=== PATIENT | female | born 1965 | race Caucasian/White ===

== ENCOUNTER 2022-10-26 17:38 | Emergency (ER) | payer OTHER ==
--- OUTSIDE RECORDS SUMMARY | 2022-10-26 17:41 | XMS REPORT | Continuity of Care Document ---
:1965 Author Organization [facility] t Address [address] [place] [address] [address] [place] [address] Care Team Providers Name Role Phone REILLY HOUSE Attending Clinician Unavailable Problems This patient has no known problems. Allergies, Adverse Reactions, Alerts This patient has no known allergies or adverse reactions. Medications This patient has no known medications. Procedures This patient has no known procedures. Encounters Start End Encounter Admission Attending Care Care Encounter Source Date/Time Date/Time Type Type Clinicians Facility Department ID 2022-10-17 2022-10-17 [facility] [id number] [place] 13:21:00 16:31:00 REILLY [id number] [facility] 2022-10-17 2022-10-17 emergency [id number] 13:21:00 16:31:00 [id number] [phone] [id number] Results This patient has no known results.
[2022-10-26] MEDS ORDERED: ONDANSETRON 4 MG/2 ML VIAL ONE (19:47)
[2022-10-26] MEDS ORDERED: NA CHLORIDE 0.9% 1,000 ML ONE (19:47)
[2022-10-26] MEDS ORDERED: DICYCLOMINE HCL 20 MG/2 ML AMP IM ONE (19:47)
[2022-10-26] MEDS ORDERED: KETOROLAC 30 MG/ML INJ ONE (19:47)
[2022-10-26] MEDS ORDERED: FAMOTIDINE 20 MG/2 ML VIAL IV ONE (19:48)
[2022-10-26 20:11] LABS: Absolute Lymphocytes (CBC) 0.7 K/uL (0.7-4.9); Hematocrit 46.6 % (36.0-45.0); Lymphocytes % 7.7 % (15.3-44.8); MCV 97.6 fL (80-100); MPV 8.2 fL (7.6-11.3); RBC Red Blood Cell Count 4.77 M/uL (3.86-4.86)
--- NOTE | 2022-10-26 20:57 | EDPHYS ---
Physician Documentation [facility] Name: Sandy Bianchi Age: 57 yrs Sex: Female : 1965 Arrival Date: 10/26/2022 Time: 17:38 Bed 11 Private MD: ED Physician Nma Barros HPI: 10/26 18:11 This 57 yrs old Female presents to ER via Unassigned with complaints of Nausea/Vomiting.ms3 18:11 57-year-old female with past medical history of diverticulitis, hypothyroidism, breast ms3 cancer presents for nausea, vomiting, abdominal pain that began 1 week prior to arrival. Patient states she has had intermittent episodes of nausea and vomiting for the past 5 years. Patient states she has had multiple work-ups that were negative. Patient states typically her symptoms resolved with IV fluid, morphine, and antiemetics. Patient denies pain at this time.. [employer]: 18:25 LMP N/A - Hysterectomy ap3 Historical: - Allergies: 18:23 PENICILLINS; ap3 - PMHx: 18:23 Anemia; Hx of breast cancer; Hypertensive disorder; Hypothyroidism; ap3 - PSHx: 18:23 Mastectomy, tanika; Thyroidectomy, partial; ap3 - Immunization history:: Client reports receiving the 2nd dose of the Covid vaccine. - Social history:: Smoking status: Reported history of juuling and/or vaping. Patient uses alcohol, only on a social basis. ROS: 18:11 Constitutional: Negative for fever, and chills. Cardiovascular: Negative for chest ms3 pain, and palpitations. Respiratory: Negative for shortness of breath, cough, wheezing, and pleuritic chest pain. 18:11 MS/Extremity: Negative for injury and deformity. 18:11 Abdomen/GI: Positive for abdominal pain, nausea and vomiting. 18:11 All other systems are negative. Exam: 18:11 Constitutional: This is a well developed, well nourished patient who is awake, alert, ms3 and in no acute distress. Head/Face: Normocephalic, atraumatic. Chest/axilla: Normal chest wall appearance and motion. Nontender with no deformity. Cardiovascular: Regular rate and rhythm with a normal S1 and S2. No gallops, murmurs, or rubs. Normal PMI, no JVD. No pulse deficits. Respiratory: Lungs have equal breath sounds bilaterally, clear to auscultation and percussion. No rales, rhonchi or wheezes noted. No increased work of breathing, no retractions or nasal flaring. Abdomen/GI: Soft, non-tender, with normal bowel sounds. No distension or tympany. No guarding or rebound. No evidence of tenderness throughout. Back: No spinal tenderness. No costovertebral tenderness. Full range of motion. Skin: Warm, dry with normal turgor. Normal color with no rashes, no lesions, and no evidence of cellulitis. MS/ Extremity: Pulses equal, no cyanosis. Neurovascular intact. Full, normal range of motion. Vital Signs: 18:22 BP 141 / 105; Pulse 80; Resp 19; Temp 98.7; Pulse Ox 100% ; Weight 65.77 kg; Height 5 ap3 ft. 2 in. ; Pain 5/10; 21:01 BP 131 / 84; Pulse 84; Resp 17; Pulse Ox 99% on R/A; kd3 18:22 Body Mass Index 26.52 (65.77 kg, 157.48 cm) ap3 18:22 Pain Scale: Adult ap3 MDM: 18:11 Differential diagnosis: Nonspecific abd pain, gastritis, diverticulitis, viral ms3 gastroenteritis, gastroenteritis. 18:37 Patient medically screened. ms3 19:04 Transition of care: After a detail discussion of the patient's case, care is ms3 transferred to Nam Barros MD. 20:58 Data reviewed: vital signs, lab test result(s). kdr 10/26 18:11 Order name: CBC with Diff; Complete Time: 20:34 ms3 10/26 18:11 Order name: CMP ms3 10/26 18:11 Order name: Lipase ms3 10/26 18:11 Order name: IV Saline Lock; Complete Time: 19:49 ms3 10/26 18:11 Order name: Labs collected and sent; Complete Time: 19:49 ms3 Administered Medications: 19:30 Drug: NS 0.9% IV 1000 ml Route: IV; Rate: 1 bolus; Site: right antecubital; mb9 19:31 Drug: Ondansetron IVP 4 mg Route: IVP; Site: right antecubital; mb9 19:34 Drug: TORadol - Ketorolac IVP 15 mg Route: IVP; Site: right antecubital; mb9 19:38 Drug: Famotidine IVP 20 mg Route: IVP; Site: right antecubital; mb9 19:56 Drug: Dicyclomine IM 20 mg Route: IM; Site: right gluteus; mb9 Disposition Summary: 10/26/22 20:56 Discharge Ordered Location: Home kdr Problem: new kdr Symptoms: have improved kdr Condition: Stable kdr Diagnosis - Nausea with vomiting, unspecified kdr Followup: kdr - With: Private Physician - When: 2 - 3 days - Reason: If symptoms return, Further diagnostic work-up, Recheck today's complaints, Continuance of care, Re-evaluation by your physician Discharge Instructions: - Discharge Summary Sheet kdr - Nausea and Vomiting, Adult, [id number] kdr Forms: - Medication Reconciliation Form kdr - Thank You Letter kdr Prescriptions: - promethazine 25 mg Oral Tablet - take 1 tablet by ORAL route every 6 hours As needed; 20 tablet; Refills: 0, kdr Product Selection Permitted Signatures: Dispatcher [employer] EDNam Medel MD MD kdr Prokisch, Amanda RN RN ap3 Orion Pulido DO DO ms3 Tamiko Botello RN RN mb9
--- NOTE | 2022-10-26 20:57 | ER ---
Nurse's Notes [facility] Name: Sandy Bianchi Age: 57 yrs Sex: Female : 1965 Arrival Date: 10/26/2022 Time: 17:38 Bed 11 Private MD: Diagnosis: Nausea with vomiting, unspecified Presentation: 10/26 18:22 Chief complaint: Patient states: she has been having nausea and vomiting since 0230 ap3 this morning. patient states this has happened a few times recently that required ER visits. Coronavirus screen: At this time, the client does not indicate any symptoms associated with coronavirus-19. Ebola Screen: No symptoms or risks identified at this time. Initial Sepsis Screen: Does the patient meet any 2 criteria? No. Patient's initial sepsis screen is negative. Does the patient have a suspected source of infection? No. Patient's initial sepsis screen is negative. Risk Assessment: Do you want to hurt yourself or someone else? Patient reports no desire to harm self or others. Onset of symptoms was October 26, 2022 at 02:30. 18:22 Method Of Arrival: Ambulatory ap3 18:22 Acuity: ALETHA 3 ap3 Triage Assessment: 18:24 General: Appears in no apparent distress. Behavior is calm, cooperative, appropriate ap3 for age. Pain: Complains of pain in abdomen Pain began 0230 this morning. Neuro: Level of Consciousness is awake, alert, obeys commands, Oriented to person, place, time, situation. Cardiovascular: Patient's skin is warm and dry. Respiratory: Airway is patent Respiratory effort is even, unlabored, Respiratory pattern is regular, symmetrical. GI: Reports lower abdominal pain, upper abdominal pain, nausea, vomiting. 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 - Social history:: Smoking status: Reported history of juuling and/or vaping. Patient uses alcohol, only on a social basis. Screenin:25 [facility] ED Fall Risk Assessment (Adult) History of falling in the last 3 months, ap3 including since admission No falls in past 3 months (0 pts). Abuse screen: Denies threats or abuse. Tuberculosis screening: No symptoms or risk factors identified. 20:59 Nutritional screening: No deficits noted. kd3 Assessment: 20:59 Reassessment: Patient states feeling better. General: Appears in no apparent distress. kd3 Neuro: Level of Consciousness is awake, alert, obeys commands, Oriented to person, place, time, situation. GI: Abdomen is flat, non-distended. Vital Signs: 18:22 BP 141 / 105; Pulse 80; Resp 19; Temp 98.7; Pulse Ox 100% ; Weight 65.77 kg; Height 5 ap3 ft. 2 in. ; Pain 5/10; 21:01 BP 131 / 84; Pulse 84; Resp 17; Pulse Ox 99% on R/A; kd3 18:22 Body Mass Index 26.52 (65.77 kg, 157.48 cm) ap3 18:22 Pain Scale: Adult ap3 ED Course: 17:43 Patient arrived in ED. mr 17:44 Orion Pulido DO is Attending Physician. ms3 18:23 Triage completed. ap3 18:25 Arm band placed on left wrist. ap3 19:05 Attending Physician role handed off by Orion Pulido DO ms3 19:05 Nam Barros MD is Attending Physician. ms3 19:47 Margarette Ohara, JOSE is Primary Nurse. kd3 19:48 Inserted saline lock: 20 gauge in right antecubital area, using aseptic technique. kd3 Blood collected. 19:57 CBC with Diff Sent. mb9 19:57 CMP Sent. mb9 19:57 Lipase Sent. mb9 20:59 Patient has correct armband on for positive identification. kd3 20:59 No provider procedures requiring assistance completed. IV discontinued, intact, kd3 bleeding controlled, No redness/swelling at site. Pressure dressing applied. Administered Medications: 19:30 Drug: NS 0.9% IV 1000 ml Route: IV; Rate: 1 bolus; Site: right antecubital; mb9 19:31 Drug: Ondansetron IVP 4 mg Route: IVP; Site: right antecubital; mb9 19:34 Drug: TORadol - Ketorolac IVP 15 mg Route: IVP; Site: right antecubital; mb9 19:38 Drug: Famotidine IVP 20 mg Route: IVP; Site: right antecubital; mb9 19:56 Drug: Dicyclomine IM 20 mg Route: IM; Site: right gluteus; mb9 Medication: 20:59 VIS not applicable for this client. kd3 Outcome: 20:56 Discharge ordered by . kdr 20:59 Discharged to home ambulatory. kd3 20:59 Condition: stable 20:59 Discharge instructions given to patient, Instructed on discharge instructions, follow up and referral plans. medication usage, Demonstrated understanding of instructions, follow-up care, medications, Prescriptions given X 21:02 Patient left the ED. kd3 Signatures: Nam Barros MD MD kdr Rivera, Mary mr Prokisch, Amanda RN RN ap3 Orion Pulido DO DO ms3 Margarette Ohara RN RN kd3 Tamiko Botello RN RN mb9
[2022-10-26 20:59] LABS: Albumin 4.2 g/dL (3.4-5.0); Bilirubin Total 0.7 mg/dL (0.2-1.0); Potassium 3.5 mEq/L (3.5-5.1)
[2022-10-26 22:16] VITALS: TEMP 98.7
[2022-10-26 22:17] VITALS: BP 131/84; O2SAT 99
== END 2022-10-26 21:02 | disposition home or self-care (01) ==
LOC: ER 17:38
DX: R11.2 Nausea with vomiting, unspecified (principal); I10 Essential (primary) hypertension; Z88.0 Allergy status to penicillin; Z90.13 Acquired absence of bilateral breasts and nipples
CPT/HCPCS: 85025; 36415; 83690; 80053; 96375; 96372; 96374; 99284; J0500; J2405; J7030

== ENCOUNTER 2023-10-09 23:23 | Observation (INO) | payer OTHER ==
--- OUTSIDE RECORDS SUMMARY | 2023-10-09 23:26 | XMS REPORT | Continuity of Care Document ---
Author Name Unknown Address [address] [facility] [address] th[address] Address [address] [facility] [address] [place] [address] Care Team Providers Care Coffee Roaster Name Role Phone Selena May Attending Clinician Unavail able Marcelina Attending Clinician Unavailable DNIESH DEWITT Attending Clinician Unavail able REILLY HOUSE Attending Clinician Unavailab trevin Hewitt Admitting Clinician Unavailable Payers Payer Name Policy Type Policy Number Effective Date Expirati on Date Source [facility] [place] [id number] Problems Condition Name Condition Details Condition Category Status Onset Date Resolution Date Last Treatment Date Treating Clinician Comments Source Hypothyroi dism Hypothyroi dism Problem Active 09-01 00:00: 00 [facility] Kimberlee thyroiditi s Kimberlee Thyroiditi s Problem Active 09-01 00:00: 00 [facility] von Willebrand disorder Von Willebrand Disorder Problem Active 08-04 00:00: 00 [facility] Hypertensi ve disorder Hypertensi ve Disorder Problem Active 08-04 00:00: 00 [facility] Coronary arterioscl erosis Coronary Arterioscl erosis Problem Active 2 00:00: 00 [facility] Deep venous thrombosis Deep Venous Thrombosis Problem Active 2 00:00: 00 [facility] Malignant tumor of breast Malignant Tumor of Breast Problem Active 08-04 00:00: 00 [facility] Diabetes mellitus Diabetes Mellitus Problem Active 2 00:00: 00 [facility] Anemia Anemia Problem Active 08-04 00:00: 00 [facility] Allergies, Adverse Reactions, Alerts Allergy Name Allergy Type Status Severity Reaction(s) Onset Date Inactive Date Treating Clinician Comments Source PENICILL INS Allergy to substanc e Active [facility] Social History Smoking Status Start Date Stop Date Source Former Smoker [facility] Medications Ordered Medication Name Filled Medication Name Start Date Stop Date Current Medication? Ordering Clinician Indication Dosage Frequency Signature (SIG) Comments Components Source amlodipine 10 mg tablet TAKE 1 TABLET BY MOUTH EVERY DAY NEEDED amlodipine 10 mg tablet TAKE 1 TABLET BY MOUTH EVERY DAY NEEDED No amlodipine 10 mg tablet TAKE 1 TABLET BY MOUTH EVERY DAY NEEDED [facility] diazepam 10 mg tablet TAKE 1 TABLET BY MOUTH ONCE A DAY NEEDED diazepam 10 mg tablet TAKE 1 TABLET BY MOUTH ONCE A DAY NEEDED No diazepam 10 mg tablet TAKE 1 TABLET BY MOUTH ONCE A DAY NEEDED [facility] metoprolol tartrate 50 mg tablet TAKE 1 TABLET BY MOUTH TWICE DAILY WITH FOOD metoprolol tartrate 50 mg tablet TAKE 1 TABLET BY MOUTH TWICE DAILY WITH FOOD No metoprolol tartrate 50 mg tablet TAKE 1 TABLET BY MOUTH TWICE DAILY WITH FOOD [facility] olmesartan 5 mg tablet TAKE 1 TABLET BY MOUTH EVERY DAY NEEDED olmesartan 5 mg tablet TAKE 1 TABLET BY MOUTH EVERY DAY NEEDED No olmesartan 5 mg tablet TAKE 1 TABLET BY MOUTH EVERY DAY NEEDED [facility] promethazin e 25 mg tablet TAKE 1 TABLET BY MOUTH EVERY 12 HOURS NEEDED promethazin e 25 mg tablet TAKE 1 TABLET BY MOUTH EVERY 12 HOURS NEEDED No promethazi ne 25 mg tablet TAKE 1 TABLET BY MOUTH EVERY 12 HOURS NEEDED [facility] sertraline 50 mg tablet TAKE 1 TABLET BY MOUTH EVERY DAY sertraline 50 mg tablet TAKE 1 TABLET BY MOUTH EVERY DAY No sertraline 50 mg tablet TAKE 1 TABLET BY MOUTH EVERY [facility] tizanidine 4 mg tablet TAKE 1 TABLET BY MOUTH THREE TIMES DAILY NEEDED tizanidine 4 mg tablet TAKE 1 TABLET BY MOUTH THREE TIMES DAILY NEEDED No tizanidine 4 mg tablet TAKE 1 TABLET BY MOUTH THREE TIMES DAILY NEEDED [facility] Vitamin B12 Vitamin B12 No Vi tamin B12 [facility] amlodipine 10 mg tablet TAKE 1 TABLET BY MOUTH EVERY DAY NEEDED amlodipine 10 mg tablet TAKE 1 TABLET BY MOUTH EVERY DAY NEEDED No amlodipine 10 mg tablet TAKE 1 TABLET BY MOUTH EVERY DAY [facility]ED [facility] cyanocobala min (vit B-12) 1,000 mcg/mL injection solution INJECT 1 ML IN THE MUSCLE ONCE A MONTH cyanocobala min (vit B-12) 1,000 mcg/mL injection solution INJECT 1 ML IN THE MUSCLE ONCE A MONTH No cyanocobal serrano (vit B-12) 1,000 mcg/mL injection solution INJECT 1 ML IN THE MUSCLE ONCE A MONTH [facility] diazepam 10 mg tablet TAKE 1 TABLET BY MOUTH ONCE A DAY NEEDED diazepam 10 mg tablet TAKE 1 TABLET BY MOUTH ONCE A DAY NEEDED No diazepam 10 mg tablet TAKE 1 TABLET BY MOUTH ONCE A DAY [facility]ED [facility] metoprolol tartrate 50 mg tablet TAKE 1 TABLET BY MOUTH TWICE DAILY WITH FOOD metoprolol tartrate 50 mg tablet TAKE 1 TABLET BY MOUTH TWICE DAILY WITH FOOD No metoprolol tartrate 50 mg tablet TAKE 1 TABLET BY MOUTH TWICE DAILY WITH FOOD [facility] olmesartan 5 mg tablet TAKE 1 TABLET BY MOUTH EVERY DAY NEEDED olmesartan 5 mg tablet TAKE 1 TABLET BY MOUTH EVERY DAY NEEDED No olmesartan 5 mg tablet TAKE 1 TABLET BY MOUTH EVERY DAY NEEDED [facility] promethazin e 25 mg tablet TAKE 1 TABLET BY MOUTH EVERY 12 HOURS NEEDED promethazin e 25 mg tablet TAKE 1 TABLET BY MOUTH EVERY 12 HOURS NEEDED No promethazi ne 25 mg tablet TAKE 1 TABLET BY MOUTH EVERY 12 HOURS NEEDED [facility] sertraline 50 mg tablet TAKE 1 TABLET BY MOUTH EVERY DAY sertraline 50 mg tablet TAKE 1 TABLET BY MOUTH EVERY DAY No sertraline 50 mg tablet TAKE 1 TABLET BY MOUTH EVERY DAY [facility] tizanidine 4 mg tablet TAKE 1 TABLET BY MOUTH THREE TIMES DAILY NEEDED tizanidine 4 mg tablet TAKE 1 TABLET BY MOUTH THREE TIMES DAILY NEEDED No tizanidine 4 mg tablet TAKE 1 TABLET BY MOUTH THREE TIMES DAILY NEEDED [facility] Vitamin B12 Vitamin B12 No Vi tamin B12 [facility] Vital Signs Vital Name Observation Time Observation Value Comments S ource Body Weight 2023-09-02 00:00:00 159.6 [lb_av] [facility] Height 2023-09-02 00:00:00 62 [in_i] [facility] orda [facility] BP Systolic 2023-09-02 00:00:00 166 mm[Hg] Herbert ady [facility] BP Diastolic 2023-09-02 00:00:00 99 mm[Hg] [facility] radhaa [facility] BMI (Body Mass Index) 2023-09-02 00:00:00 29.2 kg/m2 [facility] BMI (Body Mass Index) 2023-08-04 00:00:00 28.6 kg/m2 [facility] BP Systolic 2023-08-04 00:00:00 174 mm[Hg] Herbert ady [facility] Height 2023-08-04 00:00:00 62 [in_i] [facility] Body Weight 2023-08-04 00:00:00 156.2 [lb_av] M cesarrda [facility] BP Diastolic 2023-08-04 00:00:00 94 mm[Hg] [place] [facility] Procedures Procedure Date / Time Performed Performing Clinician Source Esophagogastroduodenoscopy 2023-08-22 00:00:00 [facility] Subtotal Thyroidectomy [place] [facility] Hysterectomy [facility] Bilateral Mastectomy [place] [facility] Encounters Start Date/Time End Date/Time Encounter Type Admission Type Attending Clinicians Care Facility Care Department Encounter ID Source 2023-08-25 13:22:01 [facility] [id number] [facility] 2023-08-01 13:02:00 [facility] [id number] [facility] 2023-10-02 00:00:00 2023-10-02 00:00:00 Outpatient Cirilogusprasad_Sherin apple [facility] [id number] [facility] 2023-09-02 00:00:00 2023-09-02 00:00:00 Outpatient Ferguson_Ro zechariah [facility] [id number] [facility] 2023-09-02 00:00:00 2023-09-02 00:00:00 Dinesh Dewitt MD: [address] [place] [id number] , Ph. [facility] [id number] [facility] 2023-08-22 11:08:00 2023-08-22 11:08:00 Outpatient DINESH LYONS [facility] [id number] [facility] 2023-08-21 00:00:00 2023-08-21 00:00:00 Outpatient Ferguson_Ro zechariah [facility] [id number] [facility] 2023-08-04 00:00:00 2023-08-04 00:00:00 Outpatient Ferguson_Ro bin [facility] [id number] [facility] 2023-08-04 00:00:00 2023-08-04 00:00:00 Dinesh Dewitt MD: [address] [place] [address] , [facility] [id number] [facility] 2023-08-03 00:00:00 2023-08-03 00:00:00 Outpatient Monserrat_Ro zechariah [facility] [id number] [facility] 2022-10-17 13:21:00 2022-10-17 16:31:00 Emergency ER REILLY HOUSE [facility] [id number] [facility] 2022-10-17 13:21:00 2022-10-17 16:31:00 emergency [id number]
[2023-10-09] MEDS ORDERED: ONDANSETRON 4 MG/2 ML VIAL ONE (23:42)
[2023-10-10 00:38] LABS: Absolute Eosinophils 0.1 K/uL (0-0.5); Absolute Lymphocytes (CBC) 0.4 K/uL (0.7-4.9); Absolute Monocytes 0.6 K/uL (0.1-1.3); Absolute Neutrophil 9.3 K/uL (1.8-8.0); Basophils % 0.2 % (0-1.3); Eosinophils % 0.8 % (0-4.4); Hematocrit 45.9 % (36.0-45.0); Hemoglobin 15.6 g/dL (12.0-15.0); Lymphocytes % 4.2 % (15.3-44.8); MCHC 34.1 g/dL (32.0-36.0); MCV 102.5 fL (80-100); MPV 8.1 fL (7.6-11.3); Monocytes % 5.6 % (3.3-12.3); Neutrophils % 89.2 % (41.7-73.7); Platelets 319 thou/uL (152-406); RBC Red Blood Cell Count 4.47 M/uL (3.86-4.86); Red Cell Distribution Width 14.7 % (12.1-15.2)
[2023-10-10 00:50] LABS: ALT/SGPT 78 U/L (13-56); AST/SGOT 41 U/L (15-37); Albumin 4.5 g/dL (3.4-5.0); Albumin/Globulin Ratio 1.2 (1.1-1.8); Alkaline Phosphatase 70 U/L (45-117); Anion Gap 9.1 mEq/L (5.0-15.0); BUN Blood Urea Nitrogen 19 mg/dL (7-18); Bicarbonate 24 mEq/L (21-32); Bilirubin Direct 0.2 mg/dL (0-0.2); Bilirubin Indirect, Calculated 0.5 mg/dL (0.2-0.8); Bilirubin Total 0.7 mg/dL (0.2-1.0); Globulin 3.7 g/dL (2.3-3.5); Glomerular Filtration Rate 79 ml/min (=/>90); Glucose Level 139 mg/dL (74-106); Lipase 31 U/L (13-75); Magnesium 2.1 mg/dL (1.6-2.4); NT PRO-BNP 271 pg/mL (<125); Potassium 4.1 mEq/L (3.5-5.1); Protein, Total 8.2 g/dL (6.4-8.2); Sodium Level 140 mEq/L (136-145)
[2023-10-10 01:02] LABS: Troponin High Sensitivity < 3.0 pg/mL (<58.9)
[2023-10-10 02:25] LABS: Band Neutrophils 17 % (0-1); Differential Total Cells Count 100; Lymphocytes 6 % (15-42); Monocytes 5 % (0-10); Segmented Neutrophils 72 % (40-80)
[2023-10-10 02:26] LABS: Blood Morphology Comment NOT SEEN (NOT SEEN); Platelet Estimate ADEQ
--- NOTE | 2023-10-10 02:31 | ER ---
Nurse's Notes [facility] Name: Sandy Bianchi Age: 58 yrs Sex: Female : 1965 Arrival Date: 10/09/2023 Time: 23:23 Bed 15 Private MD: Diagnosis: Chest pain, unspecified Presentation: 10/08 23:23 Chief complaint: Patient states: reports chest pain for one week with nausea and bm8 vomiting today. Coronavirus screen: At this time, the client does not indicate any symptoms associated with coronavirus-19. Ebola Screen: Patient negative for fever greater than or equal to 101.5 degrees Fahrenheit, and additional compatible Ebola Virus Disease symptoms Patient denies exposure to infectious person. No symptoms or risks identified at this time. Initial Sepsis Screen: Does the patient meet any 2 criteria? No. Patient's initial sepsis screen is negative. Does the patient have a suspected source of infection? No. Patient's initial sepsis screen is negative. Risk Assessment: Do you want to hurt yourself or someone else? Patient reports no desire to harm self or others. Onset of symptoms was October 03, 2023. Care prior to arrival: Medication(s) given: zofran 4 mg. 23:23 Method Of Arrival: EMS: unk bm8 23:23 Acuity: ALETHA 2 bm8 Triage Assessment: 23:34 General: Appears in no apparent distress. uncomfortable, Behavior is calm, cooperative, bm8 appropriate for age. Pain: Complains of pain in chest Pain does not radiate. Pain currently is 7 out of 10 on a pain scale. Quality of pain is described as sharp. EENT: No deficits noted. No signs and/or symptoms were reported regarding the EENT system. Neuro: No deficits noted. Level of Consciousness is awake, alert, obeys commands, Oriented to person, place, time, situation, Appropriate for age. Cardiovascular: Reports chest pain, nausea, vomiting, since last week Heart tones S1 S2 present Capillary refill < 3 seconds Patient's skin is warm and dry. Rhythm is regular. Respiratory: Airway is patent Respiratory effort is even, unlabored, Respiratory pattern is regular, symmetrical, Breath sounds are clear bilaterally. GI: No deficits noted. No signs and/or symptoms were reported involving the gastrointestinal system. : No deficits noted. No signs and/or symptoms were reported regarding the genitourinary system. Derm: No deficits noted. No signs and/or symptoms reported regarding the dermatologic system. Musculoskeletal: No deficits noted. No signs and/or symptoms reported regarding the musculoskeletal system. Historical: - Allergies: 23:34 PENICILLINS; bm8 - Home Meds: 23:34 Unable to obtain [Active]; bm8 - PMHx: 23:34 Anemia; Hx of breast cancer; Hypertensive disorder; Hypothyroidism; hashimotos disease bm8 (Hypothyroidism); - Immunization history:: Adult Immunizations up to date. - Infectious Disease History:: Denies. - Social history:: Smoking status: unknown Patient uses alcohol. - Family history:: not pertinent. Screenin:40 [facility] ED Fall Risk Assessment (Adult) History of falling in the last 3 months, km8 including since admission No falls in past 3 months (0 pts) Confusion or Disorientation No (0 pts) Intoxicated or Sedated No (0 pts) Impaired Gait No (0 pts) Mobility Assist Device Used No (0 pt) Altered Elimination No (0 pt) Score/Fall Risk Level 0 - 2 = Low Risk Oriented to surroundings, Maintained a safe environment, Educated pt \T\ family on fall prevention, incl call for assistance when getting out of bed, Assessed \T\ reinforced patient's understanding of fall precautions. Abuse screen: Denies threats or abuse. Denies injuries from another. Nutritional screening: No deficits noted. Tuberculosis screening: No symptoms or risk factors identified. Assessment: 23:40 General: Appears uncomfortable, Behavior is cooperative, appropriate for age. Pain: km8 Complains of pain in left breast Pain does not radiate. Pain currently is 7 out of 10 on a pain scale. Quality of pain is described as tightness Pain began 1 week Is continuous. Neuro: Level of Consciousness is awake, alert, obeys commands, Oriented to person, place, time, situation. Cardiovascular: Reports chest pain, nausea, vomiting, Patient's skin is warm and dry. Rhythm is sinus rhythm Chest pain is described as diffuse, quality is tightness is located in anterior chest wall began 1 week ago episodes are continuous. Respiratory: Airway is patent Respiratory effort is even, unlabored, Respiratory pattern is regular, symmetrical. GI: Abdomen is non-distended, Parent/caregiver reports the patient having nausea, vomiting. : No signs and/or symptoms were reported regarding the genitourinary system. EENT: No signs and/or symptoms were reported regarding the EENT system. Derm: No signs and/or symptoms reported regarding the dermatologic system. Skin is intact, Skin is dry, Skin is pink, warm \T\ dry. normal, Skin temperature is warm. Musculoskeletal: No signs and/or symptoms reported regarding the musculoskeletal system. Range of motion: intact in all extremities. 10/09 00:41 Reassessment: Patient appears in no apparent distress at this time. Patient and/or [facility] family updated on plan of care and expected duration. Pain level reassessed. Patient is alert, oriented x 3, equal unlabored respirations, skin warm/dry/pink. Patient states symptoms have improved. 01:06 Reassessment: Patient appears in no apparent distress at this time. No changes from [facility] previously documented assessment. Patient and/or family updated on plan of care and expected duration. Pain level reassessed. Patient is alert, oriented x 3, equal unlabored respirations, skin warm/dry/pink. 02:03 Reassessment: Patient appears in no apparent distress at this time. No changes from km previously documented assessment. Patient and/or family updated on plan of care and expected duration. Pain level reassessed. Patient is alert, oriented x 3, equal unlabored respirations, skin warm/dry/pink. 03:00 Reassessment: Patient appears in no apparent distress at this time. No changes from [facility] previously documented assessment. pt sleeping. Vital Signs: 10/08 23:23 BP 154 / 95; Pulse 80; Resp 17; Temp 97.8; Pulse Ox 100% ; Weight 70.31 kg; Height 5 bm8 ft. 4 in. ; Pain 7/10; 23:45 BP 136 / 74; Pulse 77; Resp 16; Pulse Ox 96% on R/A; km8 10/09 00:00 BP 134 / 81; Pulse 76; Resp 16; Pulse Ox 96% on R/A; 8 00:15 BP 115 / 84; Pulse 78; Resp 16; Pulse Ox 96% on R/A; 8 00:30 BP 134 / 86; Pulse 77; Resp 18; Pulse Ox 97% on R/A; 8 01:00 BP 126 / 89; Pulse 79; Resp 16; Pulse Ox 95% on R/A; km8 01:30 BP 126 / 74; Pulse 77; Resp 20; Pulse Ox 96% on R/A; km8 02:00 BP 114 / 67; Pulse 71; Resp 18; Pulse Ox 95% on R/A; km8 03:00 BP 116 / 77; Pulse 78; Resp 20; Pulse Ox 93% on R/A; km8 10/08 23:23 Body Mass Index 26.61 (70.31 kg, 162.56 cm) 8 10/08 23:23 Pain Scale: Adult [facility] [place] Coma Score: 10/08 23:40 Eye Response: spontaneous(4). Motor Response: obeys commands(6). Verbal Response: km8 oriented(5). Total: 15. ED Course: 23:24 Patient arrived in ED. km8 23:24 Carin Hager, JOSE is Primary Nurse. km8 23:24 Edmund Daigle MD is Attending Physician. rt 23:30 EKG done, by ED staff, reviewed by Edmund Dagile MD. km8 23:34 Triage completed. bm8 23:34 Arm band placed on right wrist. Patient placed in an exam room, on a stretcher. EKG [facility] completed in triage. Results shown to MD. 23:40 Basic Metabolic Panel Sent. km8 23:40 CBC with Diff Sent. 8 23:40 LFT's Sent. 8 23:40 Magnesium Sent. 8 23:40 NT PRO-BNP Sent. 8 23:40 Troponin HS Sent. 8 23:40 Initial lab(s) drawn, by ma, sent to lab. Inserted saline lock: 20 gauge in right [facility] forearm, using aseptic technique. Blood collected. 23:40 O2 via room air. km8 23:40 Patient has correct armband on for positive identification. Bed in low position. Call [facility] light in reach. Side rails up X 1. Adult w/ patient. Client placed on continuous cardiac and pulse oximetry monitoring. NIBP monitoring applied. property assessment monitor on. Pulse ox on. NIBP on. Lights dimmed. Warm blanket given. 23:47 XRAY Chest (1 view) In Process Unspecified. EDMS 23:48 TSH Sent. km8 10/09 00:43 No provider procedures requiring assistance completed. km8 02:00 Provided Education on: admission process. km8 02:30 Jaron Becerra MD is Hospitalizing Provider. rt 03:20 Patient admitted, IV remains in place. km8 Administered Medications: 10/08 23:48 Drug: Ondansetron IVP 4 mg IVP once; over 2 minutes Route: IVP; Site: right forearm; km8 10/09 00:41 Follow up: Response: No adverse reaction; Nausea is decreased 8 Medication: 10/08 23:40 VIS not applicable for this client. km8 Outcome: 10/09 02:30 Decision to Hospitalize by Provider. rt 04:30 Admitted to ER Hold. Please see [facility] for further documentation. km8 04:30 Condition: stable 04:30 Instructed on the need for admit, Demonstrated understanding of instructions, 08:29 Patient left the ED. ld1 Signatures: Dispatcher [employer] EDMS Sophie Pulido, RN RN ld1 Edmund Daigle MD MD rt Carin Hager RN RN km8 Singh Carrera RN RN bm8 Corrections: (The following items were deleted from the chart) 00:19 10/08 23:48 LIPASE+C.LAB.BRZ drawn and sent. [facility] EDVA
--- NOTE | 2023-10-10 02:31 | EDPHYS ---
Physician Documentation [facility] Name: Sandy Bianchi Age: 58 yrs Sex: Female : 1965 Arrival Date: 10/09/2023 Time: 23:23 Bed 15 Private MD: ED Physician Edmund Daigle HPI: 10/08 23:52 This 58 yrs old Female presents to ER via EMS with complaints of Chest Pain, rt Nausea/Vomiting. 23:52 Patient reports having labile blood pressures for the past week. She reports having a rt substernal chest pain as well as nausea, vomiting, keeping her from eating or drinking. The patient states that she had an abnormal stress test and heart cath over 6 years ago, but the disease was not critical to the point of needing stenting. The patient denies other acute complaints at this time, symptoms are moderate in severity, no other aggravating or alleviating factors.. Historical: - Allergies: 23:34 PENICILLINS; bm8 - Home Meds: 23:34 Unable to obtain [Active]; bm8 - PMHx: 23:34 Anemia; Hx of breast cancer; Hypertensive disorder; Hypothyroidism; hashimotos disease bm8 (Hypothyroidism); - Immunization history:: Adult Immunizations up to date. - Infectious Disease History:: Denies. - Social history:: Smoking status: unknown Patient uses alcohol. - Family history:: not pertinent. ROS: 23:52 Constitutional: Negative for fever, chills, and weight loss, Respiratory: Negative for rt shortness of breath, cough, wheezing, and pleuritic chest pain, MS/Extremity: Negative for injury and deformity, Skin: Negative for injury, rash, and discoloration, Neuro: Negative for headache, weakness, numbness, tingling, and seizure, 23:52 Cardiovascular: Positive for chest pain, Negative for edema, 23:52 Respiratory: Positive for 23:52 Abdomen/GI: Positive for nausea and vomiting, Exam: 23:52 Constitutional: This is a well developed, well nourished patient who is awake, alert, rt and in no acute distress. Head/Face: Normocephalic, atraumatic. Chest/axilla: Normal chest wall appearance and motion. Nontender with no deformity. No lesions are appreciated. Cardiovascular: Regular rate and rhythm with a normal S1 and S2. No gallops, murmurs, or rubs. Normal PMI, no JVD. No pulse deficits. Respiratory: Lungs have equal breath sounds bilaterally, clear to auscultation and percussion. No rales, rhonchi or wheezes noted. No increased work of breathing, no retractions or nasal flaring. Abdomen/GI: Soft, non-tender, with normal bowel sounds. No distension or tympany. No guarding or rebound. No evidence of tenderness throughout. Skin: Warm, dry with normal turgor. Normal color with no rashes, no lesions, and no evidence of cellulitis. MS/ Extremity: Pulses equal, no cyanosis. Neurovascular intact. Full, normal range of motion. Neuro: Awake and alert, GCS 15, oriented to person, place, time, and situation. Cranial nerves II-XII grossly intact. Motor strength 5/5 in all extremities. Sensory grossly intact. Cerebellar exam normal. Normal gait. 23:52 ECG was reviewed by the Attending Physician. Vital Signs: 23:23 BP 154 / 95; Pulse 80; Resp 17; Temp 97.8; Pulse Ox 100% ; Weight 70.31 kg; Height 5 bm8 ft. 4 in. ; Pain 7/10; 23:45 BP 136 / 74; Pulse 77; Resp 16; Pulse Ox 96% on R/A; 8 08 00:00 BP 134 / 81; Pulse 76; Resp 16; Pulse Ox 96% on R/A; km8 00:15 BP 115 / 84; Pulse 78; Resp 16; Pulse Ox 96% on R/A; 8 00:30 BP 134 / 86; Pulse 77; Resp 18; Pulse Ox 97% on R/A; 8 01:00 BP 126 / 89; Pulse 79; Resp 16; Pulse Ox 95% on R/A; km8 01:30 BP 126 / 74; Pulse 77; Resp 20; Pulse Ox 96% on R/A; 8 02:00 BP 114 / 67; Pulse 71; Resp 18; Pulse Ox 95% on R/A; km8 03:00 BP 116 / 77; Pulse 78; Resp 20; Pulse Ox 93% on R/A; [facility] 10/08 23:23 Body Mass Index 26.61 (70.31 kg, 162.56 cm) [facility] 10/08 23:23 Pain Scale: Adult bm8 [place] Coma Score: 10/08 23:40 Eye Response: spontaneous(4). Motor Response: obeys commands(6). Verbal Response: km8 oriented(5). Total: 15. MDM: 23:24 Patient medically screened. rt 10/09 02:50 Differential diagnosis: CAD, ACS, nonspecific chest pain, pneumonia, pneumothorax. rt HEART Score: History: Moderately Suspicious (1), ECG: Non specific repolarization disturbance / LBTB / PM (1), Age: > 45 and < 65 years (1), Risk Factors: > or = 3 Risk factors for atherosclerotic disease (2), Troponin: < or = 1 x Normal Limit (0), Total Score = 5. The patient was not given aspirin in the Emergency Department. Aspirin not given, patient refused. Data reviewed: vital signs, nurses notes, lab test result(s), EKG, radiologic studies. Consideration of Admission/Observation Patient was admitted/placed on observation. Management of patient was discussed with the following: Hospitalist: Agrees to admit. Independent interpretation of the following test(s) in the Emergency Department X-Ray: My interpretation is No pneumonia seen on interpretation of x-ray images. Test considered but Not performed: CT: Low suspicion for pulmonary embolism, CT angiogram not indicated. Care significantly affected by the following chronic conditions: Hypertension. Counseling: I had a detailed discussion with the patient and/or guardian regarding the historical points, exam findings, and any diagnostic results supporting the discharge/admit diagnosis, lab results, radiology results, the need for further work-up and treatment in the hospital. Response to treatment: the patient's symptoms have mildly improved after treatment. 10/08 23:34 Order name: Basic Metabolic Panel; Complete Time: 01:45 rt 10/08 23:34 Order name: CBC with Diff; Complete Time: 02:29 rt 10/08 23:34 Order name: LFT's; Complete Time: :45 rt 10/08 23:34 Order name: Magnesium; Complete Time: :45 rt 10/08 23:34 Order name: NT PRO-BNP; Complete Time: :45 rt 10/08 23:34 Order name: Troponin HS; Complete Time: 01:45 rt 10/08 23:34 Order name: TSH; Complete Time: :45 rt 10/09 00:19 Order name: Lipase; Complete Time: 01:45 EDMS 10/09 00:50 Order name: Manual Differential; Complete Time: 02:29 EDMS 10/09 02:59 Order name: Urinalysis w/ reflexes EDMS 10/09 02:59 Order name: CBC with Automated Diff EDMS 10/09 02:59 Order name: CBC with Automated Diff EDMS 10/09 02:59 Order name: Comprehensive Metabolic Panel EDMS 10/09 02:59 Order name: Comprehensive Metabolic Panel EDMS 10/09 02:59 Order name: Magnesium EDMS 10/09 02:59 Order name: Magnesium EDMS 10/09 02:59 Order name: Troponin High Sensitivity EDMS 10/09 02:59 Order name: Troponin High Sensitivity EDMS 10/09 02:59 Order name: Troponin High Sensitivity EDMS 10/09 02:59 Order name: Troponin High Sensitivity EDMS 10/09 05:02 Order name: D-Dimer EDMS 10/09 05:16 Order name: T4 Free EDMS 10/09 05:16 Order name: Thyroid Stimulating Hormone EDMS 10/08 23:34 Order name: XRAY Chest (1 view) rt 10/08 23:34 Order name: EKG; Complete Time: 23:35 rt 10/09 02:59 Order name: CONS Physician Consult EDMS 10/08 23:34 Order name: Cardiac monitoring; Complete Time: 23:37 rt 10/08 23:34 Order name: EKG - Nurse/Tech; Complete Time: 23:37 rt 10/08 23:34 Order name: IV Saline Lock; Complete Time: 23:40 rt 10/08 23:34 Order name: Labs collected and sent; Complete Time: 23:40 rt 10/08 23:34 Order name: O2 Per Protocol; Complete Time: 23:37 rt 10/08 23:34 Order name: O2 Sat Monitoring; Complete Time: 23:37 rt EC/07 23:52 Rate is 78 beats/min. Rhythm is regular, Normal Sinus Rhythm with No ectopy. QRS [place] rt is Normal. AR interval is normal. QRS interval is normal. QT interval is normal. No Q waves. Clinical impression: NSR w/ Non-specific ST/T Changes. Administered Medications: 23:48 Drug: Ondansetron IVP 4 mg IVP once; over 2 minutes Route: IVP; Site: right forearm; km8 04/08 00:41 Follow up: Response: No adverse reaction; Nausea is decreased km8 Disposition Summary: 10/10/23 02:30 Hospitalization Ordered Notes: Hospitalization Status: Observation rt Provider: Jaron Becerra rt Condition: Stable rt Problem: new rt Symptoms: have improved rt Bed/Room Type: Standard rt Location: Telemetry/MedSurg (observation)(10/10/23 07:40) bd Room Assignment: 420(10/10/23 07:40) bd Diagnosis - Chest pain, unspecified rt Forms: - Medication Reconciliation Form rt - SBAR form rt - Leadership Thank You Letter rt Signatures: Dispatcher [employer] EDMS Teri Baldwin James, RN RN jb4 Edmund Daigle MD MD rt Carin Hager RN RN km8 Singh Carrera RN RN bm8 Corrections: (The following items were deleted from the chart) 00:19 04 23:46 LIPASE+C.LAB.BRZ ordered. EDDE EDMS 10/09 03:34 02:30 Telemetry/MedSurg (observation) rt jb4 03:34 02:30 rt jb4 07:40 03:34 [facility] ER HOLD jb4 bd 07:40 03:34 ERHOLD- jb4 bd
[2023-10-10] MEDS ORDERED: ONDANSETRON 4 MG/2 ML VIAL IV PRN (02:54)
--- NOTE | 2023-10-10 03:00 | P.HP ---
Certification for Inpatient Patient admitted to: Observation With expected LOS: <2 Midnights Practitioner: I am a practitioner with admitting privileges, knowledge of patient current condition, hospital course, and medical plan of care. Services: Services provided to patient in accordance with Admission requirements found in Title 42 Section 412.3 of the Code of Federal Regulations Patient History Date of Service: 10/10/23 Reason for admission: Chest Pain History of Present Illness: 58 yrs old Female with past medical history hypertension, hypothyroidism, Kimberlee's disease, history of breast cancer, anemia, history of CAD came to ER with chest pain associated with minimal shortness of breath and nausea and vomiting. Patient reports having labile blood pressures for the past week. She reports having started substernal chest pain today which prompted her to come to the ER. It was aching type pressure-like intermittent, 6/10 in severity. Nonradiating. Not associate with any diaphoresis but associated with some nausea and vomiting. keeping her from eating or drinking. The patient states that she had an abnormal stress test and heart cath over 6 years ago, but the disease was not critical to the point of needing stenting. The patient denies other acute complaints at this time, symptoms are moderate in severity, no other aggravating or alleviating factors. No fever or chills No sick contacts Patient was seen in ER and was admitted for further management of unstable angina to rule out ACS Allergies Penicillins Allergy (Verified 10/10/23 03:38) Hives Home medications list reviewed: Yes - Past Medical/Surgical History Past Medical History: Reviewed- Non-Contributory -: hypertension, hypothyroidism, Kimberlee's disease, history of breast cancer Past Surgical History: Reviewed- Non-Contributory - Family History Family History: Reviewed- Non-Contributory - Social History Smoking Status: Never smoker Review of Systems 10-point ROS is otherwise unremarkable Cardiovascular: Chest Pain Gastrointestinal: Nausea, Vomiting Physical Examination - Vital Signs Temperature: 98.4 F Blood Pressure: 128/72 Pulse: 76 Respirations: 18 Pulse Ox (%): 96 - Physical Exam General: Alert, In no apparent distress, Oriented x3, Cooperative HEENT: Atraumatic, Normocephalic, PERRLA Neck: Supple Respiratory: Clear to auscultation bilaterally, Normal air movement Cardiovascular: Normal pulses, Regular rate/rhythm, Normal S1 S2, No gallops Capillary refill: <2 Seconds Gastrointestinal: Soft and benign, W/out hepatosplenomegaly, No ascites, No tenderness, No guarding Musculoskeletal: No clubbing, No swelling Integumentary: No rashes, No tenderness/swelling Neurological: Normal speech, Normal strength at 5/5 x4 extr, Cranial nerves 3-12 intact, Normal reflexes 2+, Normal affect Lymphatics: No axilla or inguinal lymphadenopathy - Studies Laboratory Data (last 24 hrs) 10/09/23 10/09/23 10/09/23 23:46 23:42 23:42 WBC 10.40 Hgb 15.6 H Hct 45.9 H Plt Count 319 Sodium 140 Potassium 4.1 BUN 19 H Creatinine 0.86 Glucose 139 H Magnesium 2.1 Total Bilirubin 0.7 AST 41 H ALT 78 H Alkaline Phosphatase 70 Lipase Cancelled 31 Assessment and Plan - Problems (Diagnosis) (1) Unstable angina Current Visit: Yes Status: Acute Plan: Will trend cardiac enzymes Will monitor telemetry Started on aspirin and statin EKG did not show any acute changes sinus ST-T suggestive of ischemia Patient denies any chest pain Will get an echocardiogram Cardiology consult (2) Hypertension Current Visit: Yes Status: Chronic Plan: Hypertension Antihypertensives titrated Continue home medications and titrate as needed Hyperlipidemia Continue statin (3) Hypothyroidism Current Visit: Yes Status: Chronic Plan: Continue home medications Will get a TSH level (4) History of breast cancer Current Visit: Yes Status: Chronic Plan: Continue home medications will monitor D-dimer Will get a CT chest PE protocol if D-dimer is elevated Discharge Plan: Home Plan to discharge in: 24 Hours - Advance Directives Does patient have a Living Will: No Does patient have a Durable POA for Healthcare: No - Code Status/Comfort Care Code Status: Full Code Time Spent Managing Pts Care (In Minutes): 56
[2023-10-10 04:02] VITALS: BMI 26.6
[2023-10-10 05:16] LABS: Thyroid Stimulating Hormone 0.555 uIU/mL (0.358-3.740)
[2023-10-10] MEDS: ASPIRIN EC 81 MG TAB PO SCH (09:00)
[2023-10-10] MEDS: ENOXAPARIN 40 MG/0.4 ML SQ SCH (09:00)
[2023-10-10] MEDS: ACETAMINOPHEN 500 MG TAB PO PRN (09:58)
--- NOTE | 2023-10-10 12:33 | RAD REPORT ---
EXAM DESCRIPTION: RAD - Chest Single View - 10/09/2023 11:45 pm CLINICAL HISTORY: CHEST PAIN TECHNIQUE: AP chest COMPARISON: None available for comparison FINDINGS: CHEST: Heart: The cardiomediastinal silhouette is within normal limits. Loop recorder overlying the mid thorax Lungs: No focal consolidation. Mediastinum: Unremarkable Pleura: No appreciable effusion. No pneumothorax. Bones: Deformity of the left clavicle likely old healed fracture IMPRESSION: No acute cardiopulmonary disease. Electronically signed by: Ilir Perdomo MD 10/09/2023 11:56 PM CDT Due to temporary technical issues with the PACS/Fluency reporting system, reports are being signed by the in house radiologist without review as a courtesy to ensure prompt reporting. The interpreting r adiologist is fully responsible for the content of the report
--- NOTE | 2023-10-10 12:41 | EKG ---
Test Date: 2023-10-09 Test Time: 23:28:[address] Stenographer: OTIS MEASUREMENT RESULTS: Intervals: Rate: 78 NC: 138 QRSD: 88 QT: 388 QTc: 442 [place]: P: 71 NC: 138 QRS: 47 T: 48 INTERPRETIVE STATEMENTS: Normal sinus rhythm Nonspecific T wave abnormality Abnormal ECG Compared to ECG 10/18/2022 15:36:19 Sinus bradycardia no longer present T-wave abnormality still present Electronically Signed On 10-10-23 12:40:02 CDT by Julio C Falcon
--- NOTE | 2023-10-10 13:07 | P.PN ---
Subjective Date of Service: 10/10/23 Chief Complaint: Chest Pain Pt is resting comfortably in bed. She is waiting for cardiac cath. No chest pain at bedside. Pt refused to take aspirin due to history of Von Willebrand disease. No other complaints. Review of Systems General: Unremarkable Eyes: Unremarkable ENT: Unremarkable Respiratory: Unremarkable Cardiovascular: Unremarkable Gastrointestinal: Unremarkable Genitourinary: Unremarkable Musculoskeletal: Unremarkable Integumentary: Unremarkable Neurological: Unremarkable Lymphatics: Unremarkable Physical Examination - Vital Signs Temperature: 99.2 F Blood Pressure: 133/79 Pulse: 81 Respirations: 18 Pulse Ox (%): 98 - Physical Exam General: Alert, In no apparent distress, Oriented x3 HEENT: Atraumatic, Normocephalic Neck: Supple, 2+ carotid pulse no bruit Respiratory: Clear to auscultation bilaterally, Normal air movement Cardiovascular: No edema, Normal pulses, Regular rate/rhythm, Normal S1 S2 Capillary refill: <2 Seconds Gastrointestinal: Normal bowel sounds, Soft and benign, Non-distended Musculoskeletal: No clubbing, No swelling Integumentary: No rashes, No breakdown Neurological: Normal gait, Normal speech, Normal strength at 5/5 x4 extr Lymphatics: No axilla or inguinal lymphadenopathy - Studies Laboratory Data (last 24 hrs) 10/09/23 10/09/23 10/09/23 23:46 23:42 23:42 WBC 10.40 Hgb 15.6 H Hct 45.9 H Plt Count 319 Sodium 140 Potassium 4.1 BUN 19 H Creatinine 0.86 Glucose 139 H Magnesium 2.1 Total Bilirubin 0.7 AST 41 H ALT 78 H Alkaline Phosphatase 70 Lipase Cancelled 31 Assessment And Plan - Plan Unstable Angina: Troponin is < 3 x2. Will trend troponi Q6h. Cardiology will do cardiac cath today. EKG did not show any acute changes sinus ST-T suggestive of ischemia. Will f/u Cardiology recommendation. Htn: Continue home meds HLD: statin Elevated D-dimer: D-dimer is 664. Will f/u CTA chest to r/o PE given history of breast cancer. Hx of breast cancer: noted. DVT ppx: lovenox Dispo: Pending hospital course.
--- NOTE | 2023-10-10 13:42 | RAD REPORT ---
EXAM DESCRIPTION: CT - Chest For Pe Angio - 10/10/2023 1:26 pm CLINICAL HISTORY: Chest pain. rule out PE COMPARISON: <Comparisons> TECHNIQUE: CT angiogram of the pulmonary arteries was performed with MIP. All CT scans are performed using dose optimization technique as appropriate and may include automated exposure control or mA/KV adjustment according to patient size. FINDINGS: No evidence of pulmonary thromboembolism. No acute aortic finding demonstrated. The lungs are clear. No significant pericardial or pleural fluid. No concerning bony finding. IMPRESSION: No evidence of pulmonary thromboembolism. No acute lung findings.
--- NOTE | 2023-10-10 14:07 | ECHO ---
HEIGHT: 5 ft 4 in WEIGHT: 155 lb 0 oz DATE OF STUDY: 10/10/[address]: Paul Becerra DO 2-DIMENSIONAL: YES M.MODE: YES DOPPLER: YES COLOR FLOW: YES TDS: PORTABLE: YES DEFINITY: BUBBLE STUDY: DIAGNOSIS: CHEST PAIN CARDIAC HISTORY: CATHERIZATION: YES SURGERY: NO PROSTHETIC VALVE: NO PACEMAKER: NO MEASUREMENTS (cm) DIASTOLIC (NORMALS) SYSTOLIC (NORMALS) IVSd 1.0 (0.6-1.2) LA Diam 2.4 (1.9-4.0) LVEF 56% LVIDd 3.7 (3.5-5.7) LVIDs 2.6 (2.0-3.5) %FS 29% LVPWd 1.1 (0.6-1.2) Ao Diam 2.6 (2.0-3.7) 2 DIMENSIONAL ASSESSMENT: RIGHT ATRIUM: NORMAL LEFT ATRIUM: NORMAL RIGHT VENTRICLE: NORMAL LEFT VENTRICLE: NORMAL TRICUSPID VALVE: NORMAL MITRAL VALVE: NORMAL PULMONIC VALVE: NORMAL AORTIC VALVE: NORMAL PERICARDIAL EFFUSION: NONE AORTIC ROOT: NORMAL LEFT VENTRICULAR WALL MOTION: NORMAL DOPPLER/COLOR FLOW: MILD MITRAL REGURGITATION COMMENTS: 1. NORMAL LEFT VENTRICULAR EJECTION FRACTION 55-60% 2. NORMAL WALL MOTION 3. NORMAL DIASTOLIC FUCNTION 4. MILD MITRAL REGURGITATION TECHNOLOGIST: SATNAM GUNDERSON
--- NOTE | 2023-10-10 17:08 | CON ---
Date of Consultation: 10/10/2023 Reason For Consultation: Chest pain. History Of Present Illness: This is a 58-year-old female with history of hypertension, hypothyroidis m, breast cancer, anemia, coronary artery disease, presented with chest pain, retrosternal, along wit h shortness of breath. She does have very high blood pressure and labile one and goes up and down ve ry quickly as per her report. She claimed the pain is a pressure-like, 6 to 7/10, no radiation, not related to exertion. Currently, is pain free. Past Medical History: As outlined above in the HPI. Medications: Refer to reconciliation sheet for detailed list. Allergies: PENICILLIN. Family History: No premature coronary artery disease or cancer. Social History: She does not smoke or drink. Does not use any drugs. Review of Systems: All systems reviewed and they were negative except as mentioned in the HPI. Physical Examination: Vital Signs: Reviewed. Head and Neck: Pupils are reactive to light equally bilaterally. Normal eye movements. Intact eye movements. Neck is supple. Thyroid is not enlarged. Lungs: Clear to auscultation bilaterally. No rhonchi, wheezing, or crackles. No accessory muscle u se. Heart: Regular rate and rhythm. No extra sounds. Abdomen: Soft, nontender. Bowel sounds positive. No organomegaly. No masses or hernia. No rigidi ty or rebound. Extremities: No edema, clubbing, or cyanosis. Intact pulses. Skin: No rash or nodule. Neurologic: Alert, awake, oriented x3. No acute focal deficits appreciated. Lymph Nodes: No cervical or axillary lymphadenopathy. Investigations: Cardiac enzymes are negative. BUN 19, creatinine 0.86, and hemoglobin is 15.6. Assessment And Recommendations: 1.Chest pain with some typical features but she has been chest pain free now. Cardiac enzymes are n egative. Echo showed no wall motion abnormality. Patient can be released from Cardiology standpoint and plan for exercise nuclear stress test as an outpatient. 2.Dyslipidemia. Continue statin at the current dose. 3.Hypertension. Blood pressure is controlled. Continue current management. SR/MODL Voice ID: [id number] Report ID: [id number]
[2023-10-10] MEDS: ATORVASTATIN 40 MG TAB PO SCH (20:30)
[2023-10-11] MEDS: LEVOTHYROXINE SOD 0.1 MG TAB PO SCH (06:21)
[2023-10-11 06:30] LABS: Absolute Eosinophils 0.1 K/uL (0-0.5); Absolute Lymphocytes (CBC) 0.6 K/uL (0.7-4.9); Absolute Monocytes 0.4 K/uL (0.1-1.3); Absolute Neutrophil 1.9 K/uL (1.8-8.0); Basophils % 0.8 % (0-1.3); Eosinophils % 2.7 % (0-4.4); Hematocrit 41.3 % (36.0-45.0); Hemoglobin 14.1 g/dL (12.0-15.0); Lymphocytes % 19.1 % (15.3-44.8); MCH 34.7 pg (27.0-35.0); MCHC 34.2 g/dL (32.0-36.0); MCV 101.3 fL (80-100); MPV 7.4 fL (7.6-11.3); Monocytes % 13.3 % (3.3-12.3); Neutrophils % 64.1 % (41.7-73.7); Nucleated Red Blood Cells % 0.1 % (0-0); Platelets 226 thou/uL (152-406); RBC Red Blood Cell Count 4.08 M/uL (3.86-4.86); Red Cell Distribution Width 14.3 % (12.1-15.2)
[2023-10-11 06:40] LABS: Albumin 3.8 g/dL (3.4-5.0); Albumin/Globulin Ratio 1.1 (1.1-1.8); Anion Gap 8.2 mEq/L (5.0-15.0); Bilirubin Total 0.6 mg/dL (0.2-1.0); Globulin 3.6 g/dL (2.3-3.5); Magnesium 2.1 mg/dL (1.6-2.4); Potassium 3.2 mEq/L (3.5-5.1); Protein, Total 7.4 g/dL (6.4-8.2)
[2023-10-11] MEDS: VALSARTAN 80 MG TAB PO SCH (08:13)
[2023-10-11] MEDS: SERTRALINE HCL 50 MG TAB PO SCH (08:13)
[2023-10-11] MEDS: AMLODIPINE 10 MG TAB PO SCH (08:13)
[2023-10-11] MEDS: POTASSIUM CL SA 10 MEQ TAB PO ONE (08:13)
[2023-10-11 08:53] VITALS: O2SAT 95
[2023-10-11] MEDS ORDERED: HOME MED 1 EA UNK (Levothyroxine Sodium [Synthroid] 200 MCG Tablet) PO SCH (09:00)
[2023-10-11] MEDS ORDERED: HOME MED 1 EA UNK (Olmesartan Medoxomil [Olmesartan Medoxomil] 20 MG Tablet) PO SCH (09:00)
--- NOTE | 2023-10-11 10:09 | P.DS ---
Admission Date: 10/10/23 Discharge Date: 10/11/23 Disposition: ROUTINE DISCHARGE Discharge Condition: GOOD Reason for Admission: Chest Pain Brief History of Present Illness: 58 yrs old Female with past medical history hypertension, hypothyroidism, Kimberlee's disease, history of breast cancer, anemia, history of CAD came to ER with chest pain associated with minimal shortness of breath and nausea and vomiting. Patient reports having labile blood pressures for the past week. She reports having started substernal chest pain today which prompted her to come to the ER. It was aching type pressure-like intermittent, 6/10 in severity. Nonradiating. Not associate with any diaphoresis but associated with some nausea and vomiting. keeping her from eating or drinking. The patient states that she had an abnormal stress test and heart cath over 6 years ago, but the disease was not critical to the point of needing stenting. The patient denies other acute complaints at this time, symptoms are moderate in severity, no other aggravating or alleviating factors. No fever or chills No sick contacts Hospital Course: Pt is a 58 yo female with past medical history of hypertension, hypothyroidism, Kimberlee's disease, breast cancer, anemia, and CAD who presented with chest pain associated with minimal shortness of breath and nausea and vomiting. The chest pain was non-radiating, achy and pressure-like in nature with severity of 6/10. On admission, lab studies showed troponin < 3 x 3. Cardiology evaluated pt and ordered Echo. Echo showed noreml EF ( 55 - 60%) without any wall motion abnormality. Cardiology recommended outpt follow up for NM stress test. We repleted potassium and continued home med for other chronic medical problems. Pt was prescribed atorvastatin. She was not in NAD prior to discharge. Vital Signs/Physical Exam: Temp Pulse Resp BP Pulse Ox 98 F 80 15 155/93 H 95 10/11/23 08:00 10/11/23 08:00 10/11/23 08:00 10/11/23 08:00 10/11/23 08:00 Laboratory Data at Discharge: WBC 3.00 thou/uL (4.3-10.9) L 10/11/23 05:49 Hgb 14.1 g/dL (12.0-15.0) 10/11/23 05:49 Hct 41.3 % (36.0-45.0) 10/11/23 05:49 Plt Count 226 thou/uL (152-406) 10/11/23 05:49 Sodium 138 mEq/L (136-145) 10/11/23 05:49 Potassium 3.2 mEq/L (3.5-5.1) L 10/11/23 05:49 BUN 11 mg/dL (7-18) 10/11/23 05:49 Creatinine 0.59 mg/dL (0.55-1.02) 10/11/23 05:49 Glucose 107 mg/dL (74-106) H 10/11/23 05:49 Magnesium 2.1 mg/dL (1.6-2.4) 10/11/23 05:49 Total Bilirubin 0.6 mg/dL (0.2-1.0) 10/11/23 05:49 AST 35 U/L (15-37) 10/11/23 05:49 ALT 61 U/L (13-56) H 10/11/23 05:49 Alkaline Phosphatase 65 U/L (45-117) 10/11/23 05:49 Lipase Cancelled 10/09/23 23:46 Home Medications: Amlodipine [Norvasc*] 1 tab PO DAILY 10/10/23 Cyanocobalamin (Vitamin B-12) [Cyanocobalamin Injection] 1,000 mcg IJ ONCE 10/10/23 Desmopressin [Ddavp Injection*] 1 inh ALESHA DAILY 10/10/23 Diazepam [Valium] 1 tab PO DAILY PRN 10/10/23 Levothyroxine Sodium [Synthroid] 1 tab PO DAILY 10/10/23 Metoprolol Tartrate 1 tab PO BID 10/10/23 Olmesartan Medoxomil 1 tab PO DAILY 10/10/23 Ondansetron [Zofran (Odt)*] 8 mg PO Q6HR 10/10/23 Promethazine Tab [Phenergan*] 1 tab PO BID PRN 10/10/23 Propranolol HCl 1 tab PO DAILY PRN 10/10/23 Propranolol HCl [Innopran Xl] 1 tab PO DAILY 10/10/23 Sertraline [Zoloft*] 1 tab PO DAILY 10/10/23 Tizanidine [Zanaflex*] 1 tab PO TID PRN 10/10/23 clindamycin HCL [Clindamycin HCl] 1 tab PO DAILY PRN 10/10/23 Atorvastatin Calcium [Lipitor] 40 mg PO BEDTIME 90 Days #90 tab 10/11/23 New Medications: Atorvastatin Calcium [Lipitor] 40 mg PO BEDTIME 90 Days #90 tab Physician Discharge Instructions: Continue ad sherry activity. Take atorvastatin withother home meds. Follow up with Dr. Falcon within 1 week for nuclear medicine stress test. Follow up with PCP within 2 weeks. Diet: AHA Activity: Ad sherry Followup: Selena May MD [Primary Care Provider] - Julio C Falcon MD [ACTIVE - CAN ADMIT] -
[2023-10-11] MEDS ORDERED: METOPROLOL TAR 50 MG TAB PO SCH (11:00)
[2023-10-11 12:40] VITALS: BP 143/95; TEMP 97.7
[2023-10-11] MEDS ORDERED: POTASSIUM CL SA 10 MEQ TAB PO ONE (13:00)
== END 2023-10-11 13:25 | disposition home or self-care (01) ==
LOC: ER 23:23 → ERHOLD 10-10 02:54 → 4TH 10-10 07:57
PROVIDERS: ADMIT Family Medicine; ATTEND Hospitalist
DX: I20.0 Unstable angina (principal); I10 Essential (primary) hypertension; E03.9 Hypothyroidism, unspecified; E06.3 Autoimmune thyroiditis; Z85.3 Personal history of malignant neoplasm of breast; D64.9 Anemia, unspecified; I25.10 Atherosclerotic heart disease of native coronary artery without angina pectoris; R06.02 Shortness of breath; R11.2 Nausea with vomiting, unspecified; E78.5 Hyperlipidemia, unspecified
CPT/HCPCS: 93005; 93306; 85025 ×2; 80048; 36415 ×2; 83735 ×2; 85379; 80076; 84443 ×2; 84484 ×4; 84439; 83690; 80053; 83880; 71275; 71045; 94760 ×4; 96374; 99285; Q9967; J2405; G0378

== ENCOUNTER 2024-06-10 14:00 | Inpatient (IN) | payer OTHER ==
--- OUTSIDE RECORDS SUMMARY | 2024-06-10 14:02 | XMS REPORT | Continuity of Care Document ---
Author Name Unknown Address [address] [facility] [address] thconnect Address [address] [facility] [address] [place] [address] Care Team Providers Care Bottle Packer Name Role Phone Selena May Attending Clinician Unavail able Marcelina Attending Clinician Unavailable DINESH DEWITT Attending Clinician Unavail able REILLY HOUSE Attending Clinician Unavailab trevin Hewitt Admitting Clinician Unavailable Payers Payer Name Policy Type Policy Number Effective Date Expirati on Date Source [facility] ([facility] [place] [id number] Problems Condition Name Condition Details Condition Category [...] arterioscl erosis Coronary Arterioscl erosis Problem Active 2- 00:00: 00 [facility] Deep venous thrombosis Deep Venous Thrombosis Problem Active 2 00:00: 00 [facility] Malignant tumor of breast Malignant Tumor of Breast Problem Active 2 00:00: 00 [facility] Diabetes mellitus Diabetes Mellitus Problem Active 2 00:00: 00 [facility] Anemia Anemia Problem Active 2 00:00: 00 [facility] Allergies, Adverse Reactions, Alerts Allergy Name Allergy Type Status Severity Reaction(s) Onset Date Inactive Date Treating Clinician Comments Source PENICILL INS Allergy to substanc e Active [facility] Social History Smoking Status Start Date Stop Date Source Former Smoker [facility] Medications Ordered Medication Name Filled Medication Name Start Date Stop Date Current Medication? Ordering Clinician Indication Dosage Frequency Signature (SIG) Comments Components Source metoprolol tartrate 100 mg tablet TAKE 1 TABLET BY MOUTH TWICE DAILY WITH FOOD metoprolol tartrate 100 mg tablet TAKE 1 TABLET BY MOUTH TWICE DAILY WITH FOOD 2023-07 0-14 00:00: 00 No metoprolol tartrate 100 mg tablet TAKE 1 TABLET BY MOUTH TWICE DAILY WITH FOOD [facility] amlodipine 10 mg tablet TAKE 1 TABLET BY MOUTH DAILY amlodipine 10 mg tablet TAKE 1 TABLET BY MOUTH DAILY No amlodipine 10 mg tablet TAKE 1 TABLET BY MOUTH DAILY [facility] diazepam 10 mg tablet TAKE 1 TABLET BY MOUTH DAILY FOR 15 DAYS NEEDED diazepam 10 mg tablet TAKE 1 TABLET BY MOUTH DAILY FOR 15 DAYS NEEDED No diazepam 10 mg tablet TAKE 1 TABLET BY MOUTH DAILY FOR 15 [facility]ED [facility] promethazin e 25 mg tablet TAKE 1 TABLET BY MOUTH EVERY 12 HOURS NEEDED promethazin e 25 mg tablet TAKE 1 TABLET BY MOUTH EVERY 12 HOURS NEEDED No promethazi ne 25 mg tablet TAKE 1 TABLET BY MOUTH EVERY 12 HOURS [facility]ED [facility] sertraline 50 mg tablet TAKE 1 TABLET BY MOUTH DAILY sertraline 50 mg tablet TAKE 1 TABLET BY MOUTH DAILY No sertraline 50 mg tablet TAKE 1 TABLET BY MOUTH DAILY [facility] tizanidine 4 mg tablet TAKE 1 TABLET BY MOUTH THREE TIMES DAILY tizanidine 4 mg tablet TAKE 1 TABLET BY MOUTH THREE TIMES DAILY No tizanidine 4 mg tablet TAKE 1 TABLET BY MOUTH THREE TIMES DAILY [facility] Vitamin B12 Vitamin B12 No Vi tamin B12 [facility] cyanocobala min (vit B-12) 1,000 mcg/mL injection solution INJECT 1 ML IN THE MUSCLE ONCE A MONTH cyanocobala min (vit B-12) 1,000 mcg/mL injection solution INJECT 1 ML IN THE MUSCLE ONCE A MONTH No cyanocobal serrano (vit B-12) 1,000 mcg/mL injection solution INJECT 1 ML IN THE MUSCLE ONCE A MONTH [facility] clonidine 0.2 mg/24 hr weekly transdermal patch APPLY 1 PATCH TOPICALLY TO THE SKIN WEEKLY clonidine 0.2 mg/24 hr weekly transdermal patch APPLY 1 PATCH TOPICALLY TO THE SKIN WEEKLY No clonidine 0.2 mg/24 hr weekly transderma l patch APPLY 1 PATCH TOPICALLY TO THE SKIN WEEKLY [facility] olmesartan 20 mg tablet TAKE 1 TABLET BY MOUTH EVERY DAY olmesartan 20 mg tablet TAKE 1 TABLET BY MOUTH EVERY DAY No olmesartan 20 mg tablet TAKE 1 TABLET BY MOUTH EVERY DAY [facility] Vital Signs Vital Name Observation Time Observation Value Comments S ource BP Diastolic 2024-04-16 00:00:00 146 mm[Hg] Garcia cruz [facility] Body Weight 2024-04-16 00:00:00 164.6 [lb_av] M dillan [facility] Height 2024-04-16 00:00:00 62 [in_i] Catie burks [facility] BMI (Body Mass Index) 2024-04-16 00:00:00 30.1 kg/m2 [facility] BP Systolic 2024-04-16 00:00:00 192 mm[Hg] Herbert ady [facility] Body Weight 2023-09-02 00:00:00 159.6 [lb_av] [place] [facility] Height 2023-09-02 00:00:00 62 [in_i] [place] [facility] BP Systolic 2023-09-02 00:00:00 166 mm[Hg] Herbert ady [facility] BP Diastolic 2023-09-02 00:00:00 99 mm[Hg] [place] [facility] BMI (Body Mass Index) 2023-09-02 00:00:00 29.2 kg/m2 [facility] BMI (Body Mass Index) 2023-08-04 00:00:00 28.6 kg/m2 [facility] BP Systolic 2023-08-04 00:00:00 174 mm[Hg] Herbert ady [facility] Height 2023-08-04 00:00:00 62 [in_i] [place] [facility] Body Weight 2023-08-04 00:00:00 156.2 [lb_av] [place] [facility] BP Diastolic 2023-08-04 00:00:00 94 mm[Hg] [place] [facility] Procedures Procedure Date / Time Performed Performing Clinician Source Esophagogastroduodenoscopy 2023-08-22 00:00:00 [place] [facility] Subtotal Thyroidectomy [place] [facility] Hysterectomy [facility] Bilateral Mastectomy [place] [facility] Encounters Start Date/Time End Date/Time Encounter Type Admission Type Attending Clinicians Care Facility Care Department Encounter ID Source 2023-11-17 14:01[facility] [id number] [facility] 2023-08-25 13:22:01 [facility]patient [facility] [id number] [facility] 2023-08-01 13:02:00 Outpatient Selena May [facility] [id number] [facility] 2024-04-16 00:00:00 2024-04-16 00:00:00 Dinesh Dewitt MD: [address] [place] [address] , [facility] [id number] [facility] 2023-10-02 00:00:00 2023-10-02 00:00:00 Outpatient Ferguson_Ro bin [facility] [id number] [facility] 2023-09-02 00:00:00 2023-09-02 00:00:00 Outpatient Ferguson_Ro bin [facility] [id number] [facility] 2023-09-02 00:00:00 2023-09-02 00:00:00 Dinesh Dewitt MD: [address] [place] [address] , Ph. [facility] [id number] [facility] 2023-08-22 11:08:00 2023-08-22 11:08:00 Outpatient DINESH LYONS [facility] [id number] [facility] 2023-08-21 00:00:00 2023-08-21 00:00:00 Outpatient Ferguson_Ro bin [facility] [id number] [facility] 2023-08-04 00:00:00 2023-08-04 00:00:00 Outpatient Ferguson_Ro bin [facility] [id number] [facility] 2023-08-04 00:00:00 2023-08-04 00:00:00 Dniesh Dewitt MD: [address], [place] [address] , Ph. [facility] [id number] [facility] 2023-08-03 00:00:00 2023-08-03 00:00:00 Outpatient Ferguson_Ro bin [facility] [id number] [facility] 2022-10-17 13:21:00 2022-10-17 16:31:00 Emergency ER REILLY HOUSE [facility] [id number] [facility] 2022-10-17 13:21:00 2022-10-17 16:31:00 emergency [id number]
--- NOTE | 2024-06-10 16:27 | RAD REPORT ---
EXAM: Chest Single View HISTORY: vomiting, chest pain COMPARISON: 10/09/2023 FINDINGS: LUNGS/PLEURA: The lungs are clear. No pleural effusions or pneumothorax. No pulmonary edema. MEDIASTINUM: The mediastinal silhouette is within normal limits. CARDIAC: The cardiac silhouette is within normal limits. UPPER ABDOMEN: No significant abnormality. BONES: No acute fracture. LINES/TUBES/OTHER: N/A IMPRESSION: No evidence of acute cardiopulmonary disease.
[2024-06-10] MEDS ORDERED: NA CHLORIDE 0.9% 1,000 ML ONE (17:10)
[2024-06-10] MEDS ORDERED: FAMOTIDINE 20 MG/2 ML VIAL IV ONE (17:10)
[2024-06-10] MEDS ORDERED: METOCLOPRAMIDE 10 MG/2mL INJ ONE (17:10)
[2024-06-10] MEDS ORDERED: LORazepam 2 MG/ML VIAL ONE (17:10)
[2024-06-10 17:32] LABS: Absolute Lymphocytes (CBC) 0.4 K/uL (0.7-4.9); Absolute Monocytes 0.4 K/uL (0.1-1.3); Absolute Neutrophil 7.7 K/uL (1.8-8.0); Basophils % 0.2 % (0-1.3); Eosinophils % 0.1 % (0-4.4); Hematocrit 44.9 % (36.0-45.0); Hemoglobin 14.9 g/dL (12.0-15.0); Lymphocytes % 5.2 % (15.3-44.8); MCH 34.6 pg (27.0-35.0); MCHC 33.3 g/dL (32.0-36.0); MPV 8.1 fL (7.6-11.3); Monocytes % 4.3 % (3.3-12.3); Neutrophils % 90.2 % (41.7-73.7); Platelets 254 thou/uL (152-406); RBC Red Blood Cell Count 4.31 M/uL (3.86-4.86); Red Cell Distribution Width 14.2 % (12.1-15.2)
[2024-06-10 17:36] LABS: PT Prothrombin Time 10.8 SECONDS (9.4-12.5); PTT, Activated Partial Thromb 31.1 SECONDS (24.3-36.9); Protime INR 0.96
[2024-06-10 17:52] LABS: Albumin 5.2 g/dL (3.4-5.0); Albumin/Globulin Ratio 1.4 (1.1-1.8); Anion Gap 14.8 mEq/L (5.0-15.0); Bilirubin Direct 0.4 mg/dL (0-0.2); Bilirubin Indirect, Calculated 1.3 mg/dL (0.2-0.8); Bilirubin Total 1.7 mg/dL (0.2-1.0); Globulin 3.8 g/dL (2.3-3.5); Magnesium 2.5 mg/dL (1.6-2.4); Potassium 3.8 mEq/L (3.5-5.1)
[2024-06-10] MEDS ORDERED: PROMETHAZINE INJ 25 MG/ML AMP ONE ×2 (18:14→19:59)
--- NOTE | 2024-06-10 18:53 | RAD REPORT ---
EXAMINATION: CT ABDOMEN AND PELVIS WITH CONTRAST CLINICAL INDICATION: Female, 58 years old.vomiting TECHNIQUE: CT abdomen and pelvis was performed, after the administration of IV contrast, as per [facility]. Axial, sagittal and coronal reconstructions were obtained. One or more of the following dose reduction techniques were used: Automated exposure control, adjustment of the mA and/o r kV according to patient size, and/or iterative reconstruction. Unless otherwise specified, incidental findings do not require dedicated imaging follow-up. [id number]. COMPARISON: Chest CT 10/10/2023 FINDINGS: LOWER CHEST: Bilateral breast prostheses. LIVER: Hepatic steatosis GALLBLADDER/BILE DUCT: No biliary ductal dilatation.? PANCREAS: No significant abnormality. SPLEEN: Normal size. No focal lesion. ADRENALS: Normal; no mass. KIDNEYS AND URETERS: Normal size and contour. No hydronephrosis. GASTROINTESTINAL TRACT: Stomach is non-dilated. Small bowel has normal course and caliber. No colonic wall thickening or pericolonic inflammatory changes. Diverticulosis without diverticulitis. No appendicitis. PERITONEUM: No ascites. LYMPH NODES: No lymphadenopathy. ABDOMINAL AORTA AND OTHER VESSELS: Normal caliber aorta and IVC. URINARY BLADDER: Normal contour. REPRODUCTIVE ORGANS: Uterus surgically absent. No adnexal abnormality. MUSCULOSKELETAL: No acute or suspicious osseous abnormality. ADDITIONAL FINDINGS: None. IMPRESSION: No acute or significant abnormalities seen in the abdomen or pelvis.
[2024-06-10 18:58] LABS: Band Neutrophils 13 % (0-1); Blood Morphology Comment NOT SEEN (NOT SEEN); Differential Total Cells Count 100; Lymphocytes 6 % (15-42); Monocytes 5 % (0-10); Platelet Estimate ADEQ; Segmented Neutrophils 76 % (40-80)
--- NOTE | 2024-06-10 19:20 | EDPHYS ---
Physician Documentation [facility] Name: Sandy Bianchi Age: 58 yrs Sex: Female : 1965 Arrival Date: 06/10/2024 Time: 14:00 Bed DIS8 Private MD: ED Physician Dean Eid HPI: 06/10 15:15 This 58 yrs old Female presents to ER via Ambulatory with complaints of Vomiting, Chest cp Pain. 15:15 The patient presents to the emergency department with nausea, with "dry heaves", cp vomiting, that is continuous, abdominal pain, of the epigastric area. Onset: The symptoms/episode began/occurred this afternoon after eating. Possible causes: flare up of bowel problem, gastroparesis. 15:15 Associated signs and symptoms: Pertinent positives: abdominal pain, Pertinent cp negatives: constipation, diarrhea, fever, GI bleeding. Severity of symptoms: in the emergency department the symptoms are unchanged despite home interventions. Historical: - Allergies: 15:01 PENICILLINS; aa5 - PMHx: 15:01 hashimotos disease (Hypothyroidism); Anemia; Hx of breast cancer; Hypertensive aa5 disorder; Hypothyroidism; gastroparesis (Hypothyroidism); Diabetes mellitus; - PSHx: 15:01 Mastectomy; bilateral; Mastectomy; Thyroidectomy; aa5 - Immunization history:: Immunization history: Adult Immunizations unknown. - Infectious Disease History:: Denies. - Social history:: Smoking status: Reported history of juuling and/or vaping. ROS: 15:20 Constitutional: Negative for body aches, chills, fever, cp 15:20 Cardiovascular: Positive for chest pain, 15:20 Eyes: Negative for injury, pain, redness, and discharge, cp 15:20 Respiratory: Negative for cough, shortness of breath, wheezing, 15:20 Abdomen/GI: Positive for abdominal pain, nausea and vomiting, Negative for diarrhea, constipation, hematemesis, 15:20 Neuro: Negative for altered mental status, syncope, near syncope, weakness, 15:20 All other systems are negative, cp Exam: 15:15 ECG was reviewed by the Attending Physician. cp 15:25 Constitutional: The patient appears in no acute distress, alert, awake, cp non-diaphoretic, non-toxic, well developed, well nourished, in obvious pain, uncomfortable, 15:25 Head/Face: Normocephalic, atraumatic. cp 15:25 Eyes: Periorbital structures: appear normal, Conjunctiva: normal, no exudate, no injection, Sclera: no appreciated abnormality, Lids and lashes: appear normal, bilaterally, 15:25 ENT: External ear(s): are unremarkable, Nose: is normal, Mouth: Lips: moist, Oral mucosa: pink and intact, moist, Posterior pharynx: Airway: no evidence of obstruction, patent, 15:25 Chest/axilla: Inspection: normal, 15:25 Cardiovascular: Rate: normal, Rhythm: regular, Edema: is not appreciated, JVD: is not appreciated, 15:25 Respiratory: the patient does not display signs of respiratory distress, Respirations: normal, no use of accessory muscles, no retractions, labored breathing, is not present, Breath sounds: are clear throughout, no decreased breath sounds, no stridor, no wheezing, 15:25 Abdomen/GI: Inspection: abdomen appears normal, Palpation: soft, in all quadrants, moderate abdominal tenderness, in the epigastric area, right upper quadrant and left upper quadrant, 15:25 Back: CVA tenderness, is absent, 15:25 Neuro: Orientation: to person, place \\T\\ time. Mentation: is normal, Vital Signs: 15:02 BP 198 / 120; Pulse 67; Resp 20 S; Temp 97.1(A); Pulse Ox 100% on R/A; aa5 20:57 BP 165 / 99; Pulse 85; Resp 17; Temp 97.7(T); Pulse Ox 98% on R/A; vk MDM: 15:03 Medical Screening Exam initiated cp 19:20 Data reviewed: vital signs, nurses notes, lab test result(s), EKG, radiologic studies, cp CT scan, and as a result, I will admit patient. 19:20 Differential diagnosis: Nonspecific abd pain, gastritis, pancreatitis, viral cp gastroenteritis, gastroenteritis, bowel obstruction. I considered the following discharge prescriptions or medication management in the emergency department Medications were administered in the Emergency Department. See MAR. Independent interpretation of the following test(s) in the Emergency Department EKG: See my EKG interpretation above. Counseling: I had a detailed discussion with the patient and/or guardian regarding the historical points, exam findings, and any diagnostic results supporting the discharge/admit diagnosis, lab results, radiology results. Response to treatment: the patient's symptoms have mildly improved after treatment, patient continues to have nausea and is intolerant of po fluids, and as a result, I will admit patient. 06/10 15:09 Order name: Basic Metabolic Panel; Complete Time: 18:17 cp 06/10 18:17 Interpretation: Normal except: GLUC 220; CRE 1.27; GFR 50; CA 10.8. cp 06/10 15:09 Order name: CBC with Diff; Complete Time: 19:04 cp 06/10 17:51 Interpretation: Normal except: MCV 104.0; KANA% 90.2; LYM% 5.2; LYMA 0.4. cp 06/10 15:09 Order name: LFT's; Complete Time: 18:17 cp 06/10 19:05 Interpretation: Normal except: AST 74; ALT 138; BILIT 1.7; BILID 0.4; IBILI, CALC 1.3; cp TP 9.0; ALB 5.2; GLOB 3.8. 06/10 15:09 Order name: Magnesium; Complete Time: 18:17 cp 06/10 15:09 Order name: PT-INR; Complete Time: 17:50 cp 06/10 15:09 Order name: Troponin HS; Complete Time: 18:17 cp 06/10 15:09 Order name: Ptt, Activated; Complete Time: 17:50 cp 06/10 15:09 Order name: Lipase; Complete Time: 18:17 cp 06/10 17:44 Order name: Manual Differential; Complete Time: 19:04 EDMS 06/10 20:03 Order name: Urinalysis w/ reflexes EDMS 06/10 20:03 Order name: CBC with Automated Diff EDMS 06/10 20:03 Order name: CBC with Automated Diff EDMS 06/10 20:03 Order name: Comprehensive Metabolic Panel EDMS 06/10 20:03 Order name: Comprehensive Metabolic Panel EDMS 06/10 15:09 Order name: XRAY Chest (1 view); Complete Time: 17:50 cp 06/10 17:02 Order name: CT Abd/Pelvis - IV Contrast Only; Complete Time: 19:04 cp 06/10 15:09 Order name: EKG - Nurse/Tech; Complete Time: 15:16 cp 06/10 15:09 Order name: IV Saline Lock; Complete Time: 17:43 cp 06/10 15:09 Order name: Labs collected and sent; Complete Time: 17:43 cp EC:15 Rate is 68 beats/min. Rhythm is regular. [place] interval is normal. QRS interval is normal. cp QT interval is normal. Interpreted by me. Reviewed by me. Administered Medications: 17:35 Drug: Famotidine IVP 20 mg IVP once; dilute with 10 mL 0.9% NaCl; give over 2 minutes rs5 Route: IVP; Site: left antecubital; 17:35 Drug: metoCLOPramide IVP 10 mg IVP once; over 1 to 2 minutes Route: IVP; Site: left rs5 antecubital; 17:35 Drug: Ativan IVP 1 mg IVP once Route: IVP; Site: left antecubital; rs5 17:35 Drug: NS 0.9% IV 1000 ml IV at 1 bolus Per protocol; to be given as a bolus over 60 rs5 minutes Route: IV; Rate: 1 bolus; Site: left antecubital; 18:21 Drug: Promethazine IVP 25 mg IVP once Route: IVP; Site: left forearm; me1 Disposition Summary: 06/10/24 19:19 Hospitalization Ordered Notes: Hospitalization Status: Observation cp Provider: Jaron Becerra [facility] cp Condition: Stable cp Problem: new cp Symptoms: have improved cp Bed/Room Type: Standard cp Room Assignment: 415(06/10/24 20:30) sp Diagnosis - Nausea with vomiting, unspecified - intractable cp - Chest pain, unspecified cp - Upper abdominal pain, unspecified cp Forms: - Medication Reconciliation Form cp - SBAR form cp - Leadership Thank You Letter cp Signatures: Dispatcher [employer] EDMS Shantelle Dudley Audri, RN RN aa5 Tadeo Eden PA PA cp Blayne Gibbons RN RN rs5 Ceci Louie RN RN me1 Corrections: (The following items were deleted from the chart) 15:09 15:09 BASIC METABOLIC PANEL+C.LAB.BRZ ordered. EDMS EDMS 15:09 15:09 CBC+H.LAB.BRZ ordered. EDMS EDMS 15:09 15:09 HEPATIC FUNCTION+C.LAB.BRZ ordered. EDMS EDMS 15: 15:09 MAGNESIUM+C.LAB.BRZ ordered. EDMS EDMS 15: 15:09 PROTIME (+INR)+COAG.LAB.BRZ ordered. EDMS EDMS 15: 15:09 Troponin High Sensitivity+C.LAB.BRZ ordered. EDMS EDMS 15: 15:09 PTT, ACTIVATED+COAG.LAB.BRZ ordered. EDMS EDMS 15: 15:09 LIPASE+C.LAB.BRZ ordered. EDMS EDMS 15: 15:09 Chest Single View+RAD.RAD.BRZ ordered. EDMS EDMS 17:02 17:02 Abdomen Pelvis W Con+CT.RAD.BRZ ordered. EDMS EDMS 19:18 06/09 15:20 Constitutional: Negative for body aches, chills, fever, cp cp 06/10 19:18 12 15:20 Cardiovascular: Positive for chest pain, cp cp 06/10 20:16 19:19 cp sp 20:30 20:16 422 sp sp
--- NOTE | 2024-06-10 19:20 | ER ---
Nurse's Notes [facility] Name: Sandy Bianchi Age: 58 yrs Sex: Female : 1965 Arrival Date: 06/10/2024 Time: 14:00 Bed DIS8 Private MD: Diagnosis: Nausea with vomiting, unspecified-intractable;Chest pain, unspecified;Upper abdominal pain, unspecified Presentation: 06/10 15:02 Chief complaint: Patient states: vomiting that began today after eating lunch, pt also aa5 reports abd pain and chest pain. Coronavirus screen: vomiting. Ebola Screen: Patient denies travel to an Ebola-affected area in the 21 days before illness onset. Initial Sepsis Screen: Does the patient meet any 2 criteria? No. Patient's initial sepsis screen is negative. Does the patient have a suspected source of infection? No. Patient's initial sepsis screen is negative. Risk Assessment: Do you want to hurt yourself or someone else? Patient reports no desire to harm self or others. Onset of symptoms was June 10, 2024. 15:02 Acuity: ALETHA 2 aa5 15:02 Method Of Arrival: Ambulatory aa5 Historical: - Allergies: 15:01 PENICILLINS; aa5 - PMHx: 15:01 hashimotos disease (Hypothyroidism); Anemia; Hx of breast cancer; Hypertensive aa5 disorder; Hypothyroidism; gastroparesis (Hypothyroidism); Diabetes mellitus; - PSHx: 15:01 Mastectomy; bilateral; Mastectomy; Thyroidectomy; aa5 - Immunization history:: Immunization history: Adult Immunizations unknown. - Infectious Disease History:: Denies. - Social history:: Smoking status: Reported history of juuling and/or vaping. Screenin:13 [facility] ED Fall Risk Assessment (Adult) History of falling in the last 3 months, vc1 including since admission No falls in past 3 months (0 pts) Confusion or Disorientation No (0 pts) Intoxicated or Sedated No (0 pts) Impaired Gait No (0 pts) Mobility Assist Device Used No (0 pt) Altered Elimination Yes (1 pt) Score/Fall Risk Level 0 - 2 = Low Risk Oriented to surroundings, Maintained a safe environment, Educated pt \T\ family on fall prevention, incl call for assistance when getting out of bed. Abuse screen: Denies threats or abuse. Nutritional screening: No deficits noted. Tuberculosis screening: No symptoms or risk factors identified. Vital Signs: 15:02 BP 198 / 120; Pulse 67; Resp 20 S; Temp 97.1(A); Pulse Ox 100% on R/A; aa5 20:57 BP 165 / 99; Pulse 85; Resp 17; Temp 97.7(T); Pulse Ox 98% on R/A; vk ED Course: 14:04 Patient arrived in ED. mg5 14:40 Tadeo Eden PA is PHCP. cp 14:40 Dean Eid MD is Attending Physician. cp 15:01 Arm band placed on. aa5 15:03 Triage completed. aa5 15:11 EKG completed in triage. Results shown to MD. aa5 15:13 Patient placed in waiting room, Patient notified of wait time. aa5 16:10 XRAY Chest (1 view) In Process Unspecified. EDMS 17:02 Missed attempt(s): 22 gauge in left antecubital area. Bleeding controlled, band aid mb4 applied, catheter tip intact. 17:22 Initial lab(s) drawn, by me, sent to lab. Inserted saline lock: 20 gauge in left hb forearm, using aseptic technique. ,using aseptic technique. US GUIDED Blood collected. Flushed with 10 mL NS. 17:43 Basic Metabolic Panel Sent. mb4 17:43 CBC with Diff Sent. mb4 17:43 LFT's Sent. mb4 17:43 Magnesium Sent. mb4 17:43 Troponin HS Sent. mb4 18:40 CT Abd/Pelvis - IV Contrast Only In Process Unspecified. EDMS 19:18 Jaron Becerra MD is Hospitalizing Provider. cp 21:13 No provider procedures requiring assistance completed. Patient admitted, IV remains in vc1 place. 21:14 seen in diagnostic chair. vc1 Administered Medications: 17:35 Drug: Famotidine IVP 20 mg IVP once; dilute with 10 mL 0.9% NaCl; give over 2 minutes rs5 Route: IVP; Site: left antecubital; 17:35 Drug: metoCLOPramide IVP 10 mg IVP once; over 1 to 2 minutes Route: IVP; Site: left rs5 antecubital; 17:35 Drug: Ativan IVP 1 mg IVP once Route: IVP; Site: left antecubital; rs5 17:35 Drug: NS 0.9% IV 1000 ml IV at 1 bolus Per protocol; to be given as a bolus over 60 rs5 minutes Route: IV; Rate: 1 bolus; Site: left antecubital; 18:21 Drug: Promethazine IVP 25 mg IVP once Route: IVP; Site: left forearm; wa1 Medication: 21:13 VIS not applicable for this client. vc1 Outcome: 19:19 Decision to Hospitalize by Provider. cp 22:01 Admitted to Tele via wheelchair, room 415, Other pt transported by staff via wheelchair vc1 22:01 Condition: good 22:02 Patient left the ED. vc1 Signatures: Dispatcher [employer] EDMS Veronique Ortega, RN RN aa5 Tadeo Eden PA PA cp Carla Mendez RN RN Danii Mendez mb4 Mckenna Stanley RN RN vc1 Blayne Gibbons RN RN rs5 Ceci Louie RN RN me1 Aleena Benavides mg5 Danielle Simental Corrections: (The following items were deleted from the chart) 17:22 17:22 Inserted saline lock: 20 gauge in left forearm, using aseptic technique. Blood hb collected. Flushed with 10 mL NS hb
[2024-06-10] MEDS: PROMETHAZINE INJ 25 MG/ML AMP IV ONE (19:57)
[2024-06-10] MEDS ORDERED: ACETAMINOPHEN 325 MG TABLET PO PRN (19:58)
--- NOTE | 2024-06-10 20:04 | P.HP ---
Certification for Inpatient Patient admitted to: Inpatient With expected LOS: >2 Midnights Practitioner: I am a practitioner with admitting privileges, knowledge of patient current condition, hospital course, and medical plan of care. Services: Services provided to patient in accordance with Admission requirements found in Title 42 Section 412.3 of the Code of Federal Regulations Patient History Date of Service: 06/10/24 Reason for admission: intractable Nausea /Vomiting History of Present Illness: 58 yrs old Female with past medical history of hypertension, anemia, hypo thyroidism, Kimberlee's disease, diabetes, history of gastroparesis, who was brought to ER with intractable nausea and vomiting associated with dry heaves started 2 days ago and has been progressively getting worse and could not tolerate anything p.o. Patient denies any fever or chills. No diarrhea. No sick contacts. Patient was assessed in the ER and was admitted for further management for g astroparesis and dehydration Allergies Penicillins Allergy (Verified 10/10/23 03:38) Hives Home medications list reviewed: Yes Home Medications: Amlodipine [Norvasc*] 1 tab PO DAILY 10/10/23 Cyanocobalamin (Vitamin B-12) [Cyanocobalamin Injection] 1,000 mcg IJ ONCE 10/10/23 Desmopressin [Ddavp Injection*] 1 inh ALESHA DAILY 10/10/23 Diazepam [Valium] 1 tab PO DAILY PRN 10/10/23 Levothyroxine Sodium [Synthroid] 1 tab PO DAILY 10/10/23 Metoprolol Tartrate 1 tab PO BID 10/10/23 Olmesartan Medoxomil 1 tab PO DAILY 10/10/23 Ondansetron [Zofran (Odt)*] 8 mg PO Q6HR 10/10/23 Promethazine Tab [Phenergan*] 1 tab PO BID PRN 10/10/23 Propranolol HCl 1 tab PO DAILY PRN 10/10/23 Propranolol HCl [Innopran Xl] 1 tab PO DAILY 10/10/23 Sertraline [Zoloft*] 1 tab PO DAILY 10/10/23 Tizanidine [Zanaflex*] 1 tab PO TID PRN 10/10/23 clindamycin HCL [Clindamycin HCl] 1 tab PO DAILY PRN 10/10/23 Atorvastatin Calcium [Lipitor] 40 mg PO BEDTIME 90 Days #90 tab 10/11/23 - Past Medical/Surgical History Diabetic: No Past Medical History: Reviewed- Non-Contributory -: hypertension, hypothyroidism, Kimberlee's disease, history of breast cancer Past Surgical History: Reviewed- Non-Contributory - Family History Family History: Reviewed- Non-Contributory - Social History Smoking Status: Never smoker Review of Systems 10-point ROS is otherwise unremarkable Physical Examination - Vital Signs Temperature: 97.8 F Blood Pressure: 146/78 Pulse: 76 Respirations: 18 Pulse Ox (%): 94 - Physical Exam General: Alert, Oriented x3, Mild distress HEENT: Atraumatic, Normocephalic Neck: Supple Respiratory: Clear to auscultation bilaterally, Normal air movement Cardiovascular: Normal pulses, Regular rate/rhythm, Normal S1 S2 Capillary refill: <2 Seconds Gastrointestinal: Soft and benign, W/out hepatosplenomegaly Musculoskeletal: No clubbing, No swelling Integumentary: No rashes Neurological: Normal strength at 5/5 x4 extr, Cranial nerves 3-12 intact, Normal reflexes 2+, Normal affect Lymphatics: No axilla or inguinal lymphadenopathy - Studies Laboratory Data (last 24 hrs) 06/10/24 06/10/24 06/10/24 17:21 17:21 17:21 WBC 8.50 Hgb 14.9 Hct 44.9 Plt Count 254 PT 10.8 INR 0.96 APTT 31.1 Sodium 136 Potassium 3.8 BUN 14 Creatinine 1.27 H Glucose 220 H Magnesium 2.5 H Total Bilirubin 1.7 H AST 74 H ALT 138 H Alkaline Phosphatase 79 Lipase 27 Assessment and Plan - Plan Intractable nausea and vomiting Started on Phenergan Zofran as needed Gastroparesis Reduced narcotics Pain control Protonix Need follow-up with GI as outpatient Hypertension Antihypertensives titrated Continue home medications and titrate as needed Hyperlipidemia Continue statin Hypothyroidism Continue home medications and titrate as needed Diabetes Insulin sliding scale Accu-Chek before every meal and at bedtime Elevated LFTs Monitor CMP in the morning GI/DVT prophylaxis Advanced directive full code Discharge Plan: Home Plan to discharge in: 48 Hours - Advance Directives Does patient have a Living Will: No Does patient have a Durable POA for Healthcare: No - Code Status/Comfort Care Code Status: Full Code Time Spent Managing Pts Care (In Minutes): 49
[2024-06-10 22:39] VITALS: BMI 29.1
[2024-06-10] MEDS ORDERED: SODIUM CHLORIDE 0.9% 10ML INJ IV PRN (22:44)
[2024-06-10] MEDS: PANTOPRAZOLE 40 MG INJ IVP SCH (23:37)
[2024-06-10] MEDS: NA CHLORIDE 0.9% 1,000 ML IV SCH (23:38)
[2024-06-11] MEDS: ONDANSETRON 4 MG/2 ML VIAL IV PRN (01:36)
[2024-06-11 06:41] LABS: Absolute Lymphocytes (CBC) 0.4 K/uL (0.7-4.9); Absolute Monocytes 0.4 K/uL (0.1-1.3); Absolute Neutrophil 5.8 K/uL (1.8-8.0); Basophils % 0.1 % (0-1.3); Hematocrit 43.1 % (36.0-45.0); Hemoglobin 14.3 g/dL (12.0-15.0); MCH 34.6 pg (27.0-35.0); MCHC 33.3 g/dL (32.0-36.0); MPV 8.5 fL (7.6-11.3); Monocytes % 5.5 % (3.3-12.3); Neutrophils % 88.4 % (41.7-73.7); Platelets 222 thou/uL (152-406); RBC Red Blood Cell Count 4.14 M/uL (3.86-4.86); Red Cell Distribution Width 14.4 % (12.1-15.2)
[2024-06-11 07:11] LABS: Albumin 4.7 g/dL (3.4-5.0); Albumin/Globulin Ratio 1.3 (1.1-1.8); Anion Gap 12.5 mEq/L (5.0-15.0); Bilirubin Total 1.2 mg/dL (0.2-1.0); Globulin 3.7 g/dL (2.3-3.5); Potassium 3.5 mEq/L (3.5-5.1); Protein, Total 8.4 g/dL (6.4-8.2)
[2024-06-11] MEDS: ENOXAPARIN 40 MG/0.4 ML SQ SCH (09:00)
[2024-06-11] MEDS: POTASSIUM CL SA 10 MEQ TAB PO ONE (09:29)
[2024-06-11] MEDS: METOCLOPRAMIDE 10 MG/2mL INJ IV ONE (12:30)
[2024-06-12 08:45] LABS: Albumin 3.4 g/dL (3.4-5.0); Albumin/Globulin Ratio 1.2 (1.1-1.8); Anion Gap 8.4 mEq/L (5.0-15.0); Bilirubin Total 1.1 mg/dL (0.2-1.0); Globulin 2.8 g/dL (2.3-3.5); Potassium 3.4 mEq/L (3.5-5.1); Protein, Total 6.2 g/dL (6.4-8.2)
[2024-06-12] MEDS: POTASSIUM 25 MEQ EFFERV TAB PO ONE (09:41)
[2024-06-12] MEDS: METOCLOPRAMIDE 10 MG/2mL INJ IV SCH (16:28)
[2024-06-12] MEDS: HYDRALAZINE HCL 20 MG/ML VIAL IV PRN (21:41)
[2024-06-13 06:42] LABS: Anion Gap 4.9 mEq/L (5.0-15.0); Phosphorus 1.9 mg/dL (2.5-4.9); Potassium 3.9 mEq/L (3.5-5.1)
[2024-06-13 08:30] VITALS: TEMP 97.9
[2024-06-13] MEDS: POTASSIUM 25 MEQ EFFERV TAB PO ONE (08:42)
[2024-06-13] MEDS: POTASS/SODIUM PHOSPHATE 1 PKT POWD.PACK PO SCH (08:45)
[2024-06-13 10:01] VITALS: O2SAT 99
[2024-06-13 11:12] LABS: Absolute Eosinophils 0.1 K/uL (0-0.5); Absolute Monocytes 0.5 K/uL (0.1-1.3); Absolute Neutrophil 2.2 K/uL (1.8-8.0); Basophils % 0.9 % (0-1.3); Eosinophils % 2.1 % (0-4.4); Hematocrit 41.6 % (36.0-45.0); Hemoglobin 13.4 g/dL (12.0-15.0); Lymphocytes % 26.2 % (15.3-44.8); MCH 34.1 pg (27.0-35.0); MCHC 32.1 g/dL (32.0-36.0); MCV 106.2 fL (80-100); MPV 8.1 fL (7.6-11.3); Monocytes % 12.3 % (3.3-12.3); Neutrophils % 58.5 % (41.7-73.7); Nucleated Red Blood Cells % 0.1 % (0-0); Platelets 218 thou/uL (152-406); RBC Red Blood Cell Count 3.92 M/uL (3.86-4.86); Red Cell Distribution Width 14.4 % (12.1-15.2)
[2024-06-13 11:32] LABS: Albumin 3.7 g/dL (3.4-5.0); Albumin/Globulin Ratio 1.2 (1.1-1.8); Anion Gap 8.4 mEq/L (5.0-15.0); Bilirubin Total 0.7 mg/dL (0.2-1.0); Globulin 3.1 g/dL (2.3-3.5); Potassium 3.4 mEq/L (3.5-5.1); Protein, Total 6.8 g/dL (6.4-8.2)
[2024-06-13 11:33] LABS: Thyroid Stimulating Hormone 71.6 uIU/mL (0.358-3.740)
[2024-06-13 12:19] LABS: Blood Morphology Comment NOTED (NOT SEEN); Macrocytosis 1+; Platelet Estimate ADEQ; White Blood Cell Scan OK (OK)
[2024-06-13 12:33] VITALS: BP 163/103
--- NOTE | 2024-06-15 16:07 | EKG ---
Test Date: 2024-06-10 Test Time: 15:10:44 Motel Operator: [employer] MEASUREMENT RESULTS: Intervals: Rate: 68 MA: 156 QRSD: 94 QT: 426 QTc: 452 [place]: P: 56 MA: 156 QRS: 11 T: 107 INTERPRETIVE STATEMENTS: Sinus rhythm with marked sinus arrhythmia Possible Left atrial enlargement T wave abnormality, consider lateral ischemia Abnormal ECG Compared to ECG 10/09/2023 23:28:29 Possible ischemia now present T-wave abnormality still present Electronically Signed On 06-15-24 15:57:01 PERIPHERAL EQUIPMENT OPERATOR by Kwabena Abreu
--- NOTE | 2024-06-18 16:19 | P.PN ---
Date of Service: 06/11/24 Review of Systems 10-point ROS is otherwise unremarkable Physical Examination - Vital Signs Temperature: 97.8 F Blood Pressure: 146/78 Pulse: 76 Respirations: 18 Pulse Ox (%): 94 - Physical Exam General: Alert, Oriented x3, Mild distress HEENT: Atraumatic, Normocephalic Neck: Supple Respiratory: Clear to auscultation bilaterally, Normal air movement Cardiovascular: Normal pulses, Regular rate/rhythm, Normal S1 S2 Capillary refill: <2 Seconds Gastrointestinal: Soft and benign, W/out hepatosplenomegaly Musculoskeletal: No clubbing, No swelling Integumentary: No rashes Neurological: Normal strength at 5/5 x4 extr, Cranial nerves 3-12 intact, Normal reflexes 2+, Normal affect Lymphatics: No axilla or inguinal lymphadenopathy - Studies Laboratory Data (last 24 hrs) 06/10/24 06/10/24 06/10/24 17:21 17:21 17:21 WBC 8.50 Hgb 14.9 Hct 44.9 Plt Count 254 PT 10.8 INR 0.96 APTT 31.1 Sodium 136 Potassium 3.8 BUN 14 Creatinine 1.27 H Glucose 220 H Magnesium 2.5 H Total Bilirubin 1.7 H AST 74 H ALT 138 H Alkaline Phosphatase 79 Lipase 27 Assessment and Plan - Assessment /Plan Intractable nausea and vomiting secondary to gastroparesis; continue anti emetics as needed; added Reglan to her regimen. Advised nurses not commit to regular and Phenergan at this time. Advised patient to hold off on narcotics as much as possible and have GI follow-up. Add anxiolytics. Hypertension Antihypertensives titrated Continue home medications and titrate as needed Hyperlipidemia Continue statin Hypothyroidism Continue home medications and titrate as needed Diabetes Insulin sliding scale Accu-Chek before every meal and at bedtime Elevated LFTs Monitor CMP in the morning GI/DVT prophylaxis Advanced directive full code Discharge Plan: Home Plan to discharge in: 48 Hours - Advance Directives Does patient have a Living Will: No Does patient have a Durable POA for Healthcare: No - Code Status/Comfort Care Code Status: Full Code Time Spent Managing Pts Care (In Minutes): 49
--- NOTE | 2024-06-18 16:20 | P.PN ---
Date of Service: 06/12/24 Subjective patient is clinically doing much better. Patient denies any new complaints. Nausea is improved. Will start diet. Physical Examination - Vital Signs reviewed - Physical Exam General: Alert, Oriented x3, Mild distress Respiratory: Clear to auscultation bilaterally, Normal air movement Cardiovascular: Normal pulses, Regular rate/rhythm, Normal S1 S2 Gastrointestinal: Soft and benign, W/out hepatosplenomegaly Musculoskeletal: No clubbing, No swelling Integumentary: No rashes Neurological: No focal deficitst Assessment and Plan - Assessment /Plan Intractable nausea and vomiting secondary to gastroparesis; continue anti emetics as needed; added Reglan to her regimen. Advised nurses not commit to regular and Phenergan at this time. Advised patient to hold off on narcotics as much as possible and have GI follow-up. Add anxiolytics. Hypertension Antihypertensives titrated Continue home medications and titrate as needed Hyperlipidemia Continue statin Hypothyroidism Continue home medications and titrate as needed Diabetes Insulin sliding scale Accu-Chek before every meal and at bedtime Elevated LFTs Monitor CMP in the morning GI/DVT prophylaxis Advanced directive full code Discharge Plan: Home Plan to discharge in: 48 Hours - Advance Directives Does patient have a Living Will: No Does patient have a Durable POA for Healthcare: No - Code Status/Comfort Care Code Status: Full Code Time Spent Managing Pts Care (In Minutes): 49
--- NOTE | 2024-06-18 16:22 | P.DS ---
Discharge Date: 06/13/24 Disposition: ROUTINE DISCHARGE Discharge Condition: GOOD Reason for Admission: intractable Nausea /Vomiting Brief History of Present Illness: 58 yrs old Female with past medical history of hypertension, anemia, hypothyroidism, Kimberlee's disease, diabetes, history of gastroparesis, who was brought to ER with intractable nausea and vomiting associated with dry heaves started 2 days ago and has been progressively getting worse and could not tolerate anything p.o. Patient denies any fever or chills. No diarrhea. No sick contacts. Patient was assessed in the ER and was admitted for further management for gastroparesis and dehydration Hospital Course: Patient has done well during hospital stay. Tolerating diet. Patient will continue with Reglan at discharge. Outpatient GI follow-up. Patient is stable for discharge home at this time. Vital Signs/Physical Exam: Temp Pulse Resp BP Pulse Ox 97.9 F 73 16 163/103 H 97 06/13/24 08:00 06/13/24 12:00 06/13/24 12:00 06/13/24 12:00 06/13/24 12:00 General: Alert, In no apparent distress, Oriented x3 Laboratory Data at Discharge: WBC 3.70 thou/uL (4.3-10.9) L 06/13/24 10:58 Hgb 13.4 g/dL (12.0-15.0) 06/13/24 10:58 Hct 41.6 % (36.0-45.0) 06/13/24 10:58 Plt Count 218 thou/uL (152-406) 06/13/24 10:58 PT 10.8 SECONDS (9.4-12.5) 06/10/24 17:21 INR 0.96 06/10/24 17:21 APTT 31.1 SECONDS (24.3-36.9) 06/10/24 17:21 Sodium 140 mEq/L (136-145) 06/13/24 10:58 Potassium 3.4 mEq/L (3.5-5.1) L 06/13/24 10:58 BUN 7 mg/dL (7-18) 06/13/24 10:58 Creatinine 0.95 mg/dL (0.55-1.02) 06/13/24 10:58 Glucose 79 mg/dL (74-106) 06/13/24 10:58 Phosphorus 1.9 mg/dL (2.5-4.9) L 06/13/24 06:10 Magnesium 2.5 mg/dL (1.6-2.4) H 06/10/24 17:21 Total Bilirubin 0.7 mg/dL (0.2-1.0) 06/13/24 10:58 AST 40 U/L (15-37) H 06/13/24 10:58 ALT 75 U/L (13-56) H 06/13/24 10:58 Alkaline Phosphatase 54 U/L (45-117) 06/13/24 10:58 Lipase 27 U/L (13-75) 06/10/24 17:21 Home Medications: Amlodipine [Norvasc*] 1 tab PO DAILY 10/10/23 Cyanocobalamin (Vitamin B-12) [Cyanocobalamin Injection] 1,000 mcg IJ ONCE 10/10/23 Diazepam [Valium] 2 tab PO DAILY PRN 10/10/23 Metoprolol Tartrate 1 tab PO BID 10/10/23 Olmesartan Medoxomil 1 tab PO DAILY 10/10/23 Promethazine Tab [Phenergan*] 1 tab PO BID PRN 10/10/23 Sertraline [Zoloft*] 1 tab PO DAILY 10/10/23 Tizanidine [Zanaflex*] 1 tab PO TID PRN 10/10/23 Atorvastatin Calcium [Lipitor] 80 mg PO BEDTIME 06/11/24 Cholecalciferol (Vitamin D3) [Vitamin D 5,000 IU Cap*] 5,000 units PO DAILY 06/11/24 Famotidine 20 mg PO DAILY 06/11/24 Furosemide [Lasix*] 20 mg PO DAILY 06/11/24 Thyroid Tab [[place] Thyroid*] 30 mg PO DAILY 06/11/24 Thyroid,Pork [[place] Thyroid] 120 mg PO DAILY 06/11/24 buPROPion HCL [Bupropion HCl Sr] 150 mg PO DAILY 06/11/24 cloNIDine [Clonidine] 0.3 mg Q7D 06/11/24 Alprazolam [Alprazolam Odt] 0.5 mg PO DAILY PRN #20 tab 06/13/24 Metoclopramide [Reglan] 5 mg PO TID PRN #30 tab 12/11/24 Promethazine Suppos [Phenergan -Suppos*] 25 mg [place] DAILY PRN #20 supp 06/13/24 New Medications: Alprazolam [Alprazolam Odt] 0.5 mg PO DAILY PRN #20 tab PRN Reason: Anxiety Promethazine Suppos [Phenergan -Suppos*] 25 mg [place] DAILY PRN #20 supp PRN Reason: Nausea / Vomiting Metoclopramide [Reglan] 5 mg PO TID PRN #30 tab PRN Reason: persistent nausea and vomiting Physician Discharge Instructions: -DC IV and DC home -Follow-up with PCP in 1 to 2 weeks -Follow-up with Gastroenterology in 1 to 2 weeks -Please call Dr. Presley at [phone] if any questions regarding hospital stay -Please call nursing station at [phone] if any nursing or medication questions -Return to the emergency room if symptoms worsen Diet: low residu Activity: Fall precautions Followup: Selena May MD [Primary Care Provider] - 1-2 Weeks Time spent managing pt's care (in minutes): 35
== END 2024-06-13 14:25 | disposition home or self-care (01) | DRG 74 ==
LOC: ER 14:00 → 4TH 19:58
PROVIDERS: ADMIT Family Medicine; ATTEND Hospitalist
DX: E11.43 Type 2 diabetes mellitus with diabetic autonomic (poly)neuropathy (principal); K31.84 Gastroparesis; E86.0 Dehydration; E03.9 Hypothyroidism, unspecified; E78.5 Hyperlipidemia, unspecified; I10 Essential (primary) hypertension; R79.89 Other specified abnormal findings of blood chemistry; Z88.0 Allergy status to penicillin; Z85.3 Personal history of malignant neoplasm of breast; Z90.13 Acquired absence of bilateral breasts and nipples; Z79.890 Hormone replacement therapy; Z79.899 Other long term (current) drug therapy
CPT/HCPCS: 36415; 71045; 74177; 80048; 80053; 80076; 82306; 82947; 83519; 83690; 83735; 83970; 84100; 84132; 84146; 84439; 84443; 84484; 85025; 85610; 85730; 93005; 94760; 99285; J0360; J1650; J2405; J2470; J2550; J2765; J7030; Q9967